=== PATIENT | female | born 1940 | race Caucasian/White ===

== ENCOUNTER 2016-09-29 13:52 | Outpatient (CLI) | payer MEDICARE, OTHER ==
[2016-09-29 14:31] LABS: BASOPHILS # (AUTO) 0.1 10^3/uL (0.0-0.1); BASOPHILS % (AUTO) 0.9 %; EOSINOPHILS # (AUTO) 0.1 10^3/uL (0.0-0.7); EOSINOPHILS % (AUTO) 1.7 %; HCT - HEMATOCRIT 39.8 % (37.0-47.0); HGB - HEMOGLOBIN 13.1 g/dL (12.0-16.0); LYMPHOCYTES # (AUTO) 1.2 10^3/uL (1.5-3.5); LYMPHOCYTES % (AUTO) 18.4 %; MEAN CORPUSCULAR HEMOGLOBIN 30.5 pg (27.0-31.0); MEAN CORPUSCULAR HGB CONC 32.8 g/dL (32.0-36.0); MEAN CORPUSCULAR VOLUME 92.8 fL (81.0-99.0); MEAN PLATELET VOLUME 6.4 fL (7.9-10.8); MONOCYTES # (AUTO) 0.5 10^3/uL (0.0-1.0); MONOCYTES % (AUTO) 6.9 %; NEUTROPHILS # (AUTO) 4.8 10^3/uL (1.5-6.6); NEUTROPHILS % (AUTO) 72.1 %; RED BLOOD COUNT 4.29 10^6/uL (4.20-5.40); RED CELL DISTRIBUTION WIDTH 16.1 % (12.0-15.0); UNCORRECTED WHITE BLOOD COUNT 6.7 x10^3/uL; WHITE BLOOD COUNT 6.7 x10^3/uL (4.8-10.8)
== END 2016-09-29 13:53 | disposition home or self-care (01) ==
LOC: LAB 13:52
PROVIDERS: ATTEND Internal Medicine Rheumatology
DX: M35.3 Polymyalgia rheumatica (principal); Z79.899 Other long term (current) drug therapy
CPT/HCPCS: 36415; 85025

== ENCOUNTER 2016-10-06 12:08 | Outpatient (CLI) | payer MEDICARE, OTHER ==
[2016-10-06 12:45] LABS: ALBUMIN/GLOBULIN RATIO 1.6 (1.0-2.2); BILIRUBIN,TOTAL 0.5 mg/dL (0.2-1.0); BUN - BLOOD UREA NITROGEN 23 mg/dL (6-20); CALCIUM 8.9 mg/dL (8.5-10.3); CARBON DIOXIDE - CO2 27 mmol/L (21-32); CHLORIDE 104 mmol/L (101-111); GFR - MDRD 54 (>89); GLUCOSE 88 mg/dL (70-100); POTASSIUM 3.7 mmol/L (3.5-5.0); SODIUM 138 mmol/L (135-145); TOTAL PROTEIN 6.4 g/dL (6.7-8.2)
== END 2016-10-06 12:09 | disposition home or self-care (01) ==
LOC: LAB 12:08
PROVIDERS: ATTEND Internal Medicine Rheumatology
DX: M35.3 Polymyalgia rheumatica (principal); Z79.899 Other long term (current) drug therapy
CPT/HCPCS: 36415; 80053; 86140

== ENCOUNTER 2016-11-28 14:19 | Outpatient (CLI) | payer MEDICARE, OTHER ==
[2016-11-28 14:46] LABS: BASOPHILS # (AUTO) 0.1 10^3/uL (0.0-0.1); BASOPHILS % (AUTO) 1.3 %; EOSINOPHILS # (AUTO) 0.1 10^3/uL (0.0-0.7); EOSINOPHILS % (AUTO) 1.9 %; HCT - HEMATOCRIT 40.3 % (37.0-47.0); HGB - HEMOGLOBIN 13.2 g/dL (12.0-16.0); LYMPHOCYTES # (AUTO) 1.5 10^3/uL (1.5-3.5); LYMPHOCYTES % (AUTO) 19.9 %; MEAN CORPUSCULAR HEMOGLOBIN 30.7 pg (27.0-31.0); MEAN CORPUSCULAR HGB CONC 32.8 g/dL (32.0-36.0); MEAN CORPUSCULAR VOLUME 93.5 fL (81.0-99.0); MEAN PLATELET VOLUME 6.6 fL (7.9-10.8); MONOCYTES # (AUTO) 0.7 10^3/uL (0.0-1.0); MONOCYTES % (AUTO) 9.1 %; NEUTROPHILS % (AUTO) 67.8 %; NUCLEATED RED BLOOD CELLS AUTO 0.1 /100WBC; RED BLOOD COUNT 4.31 10^6/uL (4.20-5.40); RED CELL DISTRIBUTION WIDTH 17.5 % (12.0-15.0); UNCORRECTED WHITE BLOOD COUNT 7.4 x10^3/uL; WHITE BLOOD COUNT 7.4 x10^3/uL (4.8-10.8)
[2016-11-28 15:02] LABS: ALBUMIN/GLOBULIN RATIO 1.5 (1.0-2.2); BILIRUBIN,TOTAL 0.6 mg/dL (0.2-1.0); BUN - BLOOD UREA NITROGEN 22 mg/dL (6-20); CALCIUM 9.2 mg/dL (8.5-10.3); CARBON DIOXIDE - CO2 26 mmol/L (21-32); CHLORIDE 102 mmol/L (101-111); CREATININE 1.1 mg/dL (0.4-1.0); GFR - MDRD 48 (>89); GLUCOSE 85 mg/dL (70-100); SODIUM 137 mmol/L (135-145); TOTAL PROTEIN 6.6 g/dL (6.7-8.2)
== END 2016-11-28 14:20 | disposition home or self-care (01) ==
LOC: LAB 14:19
PROVIDERS: ATTEND Internal Medicine Rheumatology
DX: M35.3 Polymyalgia rheumatica (principal); M81.0 Age-related osteoporosis without current pathological fracture
CPT/HCPCS: 36415; 80053; 82306; 85025; 86140

== ENCOUNTER 2017-08-23 15:32 | Outpatient (CLI) | payer MEDICARE, OTHER ==
--- NOTE | 2017-08-24 08:35 | XRAY Report ---
Procedure Date: 08/23/2017 Accession Number: [id number] / [id number] Procedure: XR - Hip w/Pelvis 2-3V LT CPT Code: FULL RESULT: EXAM: Hip w/Pelvis 2-3V LT DATE: 08/23/2017 4:13 PM CLINICAL HISTORY: PMR, OSTEOARTHRITIS, LEFT HIP PAIN COMPARISON: None. TECHNIQUE: 1 view of the pelvis and 1 view of the hip. FINDINGS: Bones: Right hip replacement. No evidence of fracture. Joints: Mild left hip osteoarthritis. Soft Tissues: Normal. No soft tissue swelling. IMPRESSION: Mild left hip osteoarthritis. Previous right hip replacement. RADIA
== END 2017-08-23 15:33 | disposition home or self-care (01) ==
LOC: DI 15:32
PROVIDERS: ATTEND Internal Medicine Rheumatology
DX: M16.12 Unilateral primary osteoarthritis, left hip (principal); Z96.641 Presence of right artificial hip joint

== ENCOUNTER 2017-10-15 17:00 | Emergency (ER) | payer MEDICARE, OTHER ==
[2017-10-15 17:16] VITALS: BP 182/70
[2017-10-15] MEDS ORDERED: LIDOCAINE VISCOUS 2% 15 ML UDC MM STA (17:40)
--- NOTE | 2017-10-15 17:41 | ED Physician Documentation ---
PD HPI LOWER EXT INJURY - Stated complaint Stated Complaint: RT LEG WOUND/DOG - Chief complaint Chief Complaint: Ext Problem - History obtained from History obtained from: Patient - History of Present Illness PD HPI LOW EXT INJURY LOCATION: Right, Lower leg Type of injury: Blunt / blow Where injury occurred: Home Timing - onset: Today Timing - duration: Minutes Timing - details: Abrupt onset, Still present Improved by: Rest, Immobilization Worsened by: Moving, Palpating Associated symptoms: No: Weakness, Numbness, Tingling Similar symptoms before: Diagnosis (thin skin tears) Recently seen: Not recently seen - Additional information Additional information: 77 y/o female with thin skin from prednisone wears skin protectors on her calves and arms as she has had numerous thin skin tears. She was with her daughter when a dog bit her daughter and banged into the patients anterior right calf. Despite the skin protectors the patient sustained an 8cm thin skin tear on the anterior calf. She presents now for wound repair. She knows sutures will not work on her skin. 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 Derm: Skin cancer surgery - Present Medications Home Medications: Ambulatory Orders Medication Instructions Recorded Confirmed RX: predniSONE [Prednisone] 1 - 2 mg PO BID 08/01/16 08/02/16 Calcium Carbonate/Vitamin D3 1 tab PO DAILY 08/02/16 08/02/16 [Calcium 600-Vit D3 400 Tablet] Denosumab [Prolia] 60 mg SUBQ ONCE 08/02/16 08/02/16 [place]-3/Dha/Epa/Fish Oil [Fish Oil 1,000 mg PO DAILY 08/02/16 08/02/16 1,000 mg Softgel] RX: Folic Acid 1 mg PO DAILY 08/02/16 08/02/16 RX: Methotrexate 8 tab PO Q7D 08/02/16 08/02/16 RX: Multivitamin [Multivitamins] 1 cap PO DAILY 08/02/16 08/02/16 - Allergies Allergies/Adverse Reactions: Allergies Allergy/AdvReac Type Severity Reaction Status Date / Time No Known Drug Allergies Allergy Verified 10/15/17 17:15 - Social History Smoking Status: Never smoker PD ED PE NORMAL - Vitals Vital signs reviewed: Yes (hypertension ) - General General: Alert and oriented X 3, No acute distress, Well developed/nourished - HEENT HEENT: Atraumatic, PERRL - Respiratory Respiratory: No respiratory distress - Derm Derm: Normal color, Warm and dry, Other (The skin is thin and there are a lot of post inflammitory hyperpigmentation areas of prior injuries to both forearms and both calves.) - Extremities Extremities: No deformity, No edema, Other (There is an 8cm thin flap of skin over the anterior calf on the right side superior. distal n/v is intact. ) - Neuro Neuro: Alert and oriented X 3, ticket worker 2-12 intact, No motor deficit, No sensory deficit, Normal speech Eye Opening: Spontaneous Motor: Obeys Commands Verbal: Oriented GCS Score: 15 - Psych Psych: Normal mood, Normal affect Results - Vitals Vitals: Vital Signs - 24 hr 10/15/17 17:13 Temperature 36.0 C L Heart Rate 68 Respiratory 16 Rate Blood Pressure 182/70 H O2 Saturation 98 Oxygen O2 Source Room air Procedures - Laceration (location) right calf Length in cm: 8 Wound type: Flap, Superficial, Clean Neurovascular status: Sensory intact, Motor intact Anesthesia: OTH (viscous lido is placed to the skin) Wound Preparation: Irrigated copiously NS, Wound explored, To the base Skin layer closure: Dermabond, Steri strips Other: Patient tolerated well, No complications, Neurovascular intact, Dressing applied, Tetanus UTD Complexity: Simple PD MEDICAL DECISION MAKING - ED course Complexity details: reviewed old records, considered differential, d/w patient, d/w family ED course: 77-year-old female with a thin flap of skin on the right calf that is repaired with the assistance of viscous lidocaine as an anesthetic and the skin is teased back up into position after irrigation and cleaning and with use of tincture of benzoin and Steri-Strips the wound is repositioned and approximated and over the top of the central portion of this Dermabond is applied. - Sepsis Event Vital Signs: Vital Signs - 24 hr 10/15/17 17:13 Temperature 36.0 C L Heart Rate 68 Respiratory 16 Rate Blood Pressure 182/70 H O2 Saturation 98 Oxygen O2 Source Room air Departure - Departure Disposition: 01 Home, Self Care Clinical Impression: Laceration of left calf without complication Qualifiers: Encounter type: initial encounter Qualified Code(s): S81.812A - Laceration without foreign body, left lower leg, initial encounter Condition: Stable Instructions: ED Laceration Ext Sutr Stap Tape Follow-Up: Juan Ramirez MD [Primary Care Provider] -
== END 2017-10-15 18:49 | disposition home or self-care (01) ==
LOC: ED 17:00
DX: S81.812A Laceration without foreign body, left lower leg, initial encounter (principal); Z79.52 Long term (current) use of systemic steroids; W22.8XXA Striking against or struck by other objects, initial encounter; Y92.009 Unspecified place in unspecified non-institutional (private) residence as the place of occurrence of the external cause
CPT/HCPCS: 12004; 99282; 99283

== ENCOUNTER 2017-11-22 22:40 | Emergency (ER) | payer MEDICARE, OTHER ==
--- NOTE | 2017-11-22 23:16 | ED Physician Documentation ---
History of Present Illness - Stated complaint Stated Complaint: BILAT LEG PX - Chief complaint Chief Complaint: Ext Problem - History obtained from History obtained from: Patient, Family - History of Present Illness Timing: Today - Additonal information Additional information: 77-year-old female with a history of rheumatoid arthritis who is on methotrexate and prednisone and has a severe problem with thin skin has developed some severe muscle cramps in her lower extremities this evening x2. She reports that earlier in the day today she did go out to take the dogs for a walk and that she did walk on the beach as well and she did some work in the garden doing some weed whacking. She does state that she feels thirsty now and that after the first attack that she had of this severe cramping, she did drink some water and she drank some more water following the second attack. She describes these attacks as severe contraction of both legs to the point she was unable to move them or to move herself. She states the pain was intense and unrelenting. The pain was down the back of both legs and into the groin on the right side. She is asymptomatic now here in the emergency department with the exception of some dry mucous membranes. Review of Systems Constitutional: denies: Fever, Chills, Myalgias, Fatigue Eyes: denies: Decreased vision Ears: denies: Ear pain Nose: denies: Rhinorrhea / runny nose, Congestion Throat: denies: Sore throat Cardiac: denies: Chest pain / pressure, Palpitations Respiratory: denies: Dyspnea, Cough GI: denies: Abdominal Pain, Nausea, Vomiting : reports: Frequency. denies: Dysuria Skin: denies: Rash Musculoskeletal: reports: Extremity pain. 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 Derm: Skin cancer surgery - Present Medications Home Medications: Ambulatory Orders Medication Instructions Recorded Confirmed predniSONE [Prednisone] 1 - 2 mg PO BID 08/01/16 11/22/17 Calcium Carbonate/Vitamin D3 1 tab PO DAILY 08/02/16 11/22/17 [Calcium 600-Vit D3 400 Tablet] Denosumab [Prolia] 60 mg SUBQ ONCE 08/02/16 11/22/17 Folic Acid 1 mg PO DAILY 08/02/16 11/22/17 Methotrexate 8 tab PO Q7D 08/02/16 11/22/17 Multivitamin [Multivitamins] 1 cap PO DAILY 08/02/16 11/22/17 [place]-3/Dha/Epa/Fish Oil [Fish Oil 1,000 mg PO DAILY 08/02/16 11/22/17 1,000 mg Softgel] Magnesium 250 mg PO DAILY 11/22/17 11/22/17 Melatonin/Pyridoxine [Melatonin 5 1 tab PO QPM 11/22/17 11/22/17 mg Tablet] Meloxicam 15 mg PO DAILY 11/22/17 11/22/17 - Allergies Allergies/Adverse Reactions: Allergies Allergy/AdvReac Type Severity Reaction Status Date / Time No Known Drug Allergies Allergy Verified 11/22/17 22:49 - Social History Does the pt smoke?: No Smoking Status: Never smoker Does the pt drink ETOH?: Yes ETOH Use: Wine, Beer Does the pt have substance abuse?: No - Immunizations Immunizations are current?: No Immunizations: TDAP >10years/unknown - POLST Patient has POLST: No PD ED PE NORMAL - Vitals Vital signs reviewed: Yes (hypertensive) - General General: Alert and oriented X 3, No acute distress, Well developed/nourished - HEENT HEENT: Atraumatic, PERRL - Respiratory Respiratory: No respiratory distress - Derm Derm: Normal color, Warm and dry, No rash - Extremities Extremities: No deformity, No edema, Other (There is post inflamatory hy perpigmentation of both lower calves. There is no specific tenderness and the wound to the right lateral calf is no examined. ) - Neuro Neuro: Alert and oriented X 3, optical instrument assembler 2-12 intact, No motor deficit, No sensory deficit, Normal speech Eye Opening: Spontaneous Motor: Obeys Commands Verbal: Oriented GCS Score: 15 - Psych Psych: Normal mood, Normal affect Results - Vitals Vitals: Vital Signs - 24 hr 11/22/17 22:45 Temperature 36.5 C Heart Rate 77 Respiratory 16 Rate Blood Pressure 157/90 H O2 Saturation 95 Oxygen O2 Source Room air - Labs Labs: Laboratory Tests 11/22/17 11/22/1718 23:30 23:30 23:30 WBC 7.2 RBC 4.28 Hgb 13.3 Hct 40.0 MCV 93.5 MCH 31.1 H MCHC 33.3 RDW 15.9 H Plt Count 237 MPV 6.2 L Neut # (Auto) 5.4 Lymph # (Auto) 1.2 L [place] # (Auto) 0.5 Eos # (Auto) 0.1 Baso # (Auto) 0.1 Absolute Nucleated RBC 0.00 Nucleated RBC % 0.0 Sodium 137 Potassium 4.0 Chloride 103 Carbon Dioxide 27 Anion Gap 7.0 BUN 35 H Creatinine 1.1 H Estimated GFR (MDRD) 48 L Glucose 79 Calcium 8.8 Total Bilirubin 0.5 AST 24 ALT 20 Alkaline Phosphatase 67 Total Creatine Kinase 97 CK-MB (CK-2) 3.0 Troponin I < 0.04 Total Protein 6.8 Albumin 3.9 Globulin 2.9 Albumin/Globulin Ratio 1.3 Lipase 66 H Urine Color Urine Clarity Urine pH Ur Specific Mcloud Urine Protein Urine Glucose (UA) Urine Ketones Urine Occult Blood Urine Nitrite Urine Bilirubin Urine Urobilinogen Ur Leukocyte Esterase Ur Microscopic Review Urine Culture Comments 11/22/17 23:30 WBC RBC Hgb Hct MCV MCH MCHC RDW Plt Count MPV Neut # (Auto) Lymph # (Auto) [place] # (Auto) Eos # (Auto) Baso # (Auto) Absolute Nucleated RBC Nucleated RBC % Sodium Potassium Chloride Carbon Dioxide Anion Gap BUN Creatinine Estimated GFR (MDRD) Glucose Calcium Total Bilirubin AST ALT Alkaline Phosphatase Total Creatine Kinase CK-MB (CK-2) Troponin I Total Protein Albumin Globulin Albumin/Globulin Ratio Lipase Urine Color YELLOW Urine Clarity CLEAR Urine pH 6.0 Ur Specific Mcloud 1.025 Urine Protein NEGATIVE Urine Glucose (UA) NEGATIVE Urine Ketones NEGATIVE Urine Occult Blood NEGATIVE Urine Nitrite NEGATIVE Urine Bilirubin NEGATIVE Urine Urobilinogen 0.2 (NORMAL) Ur Leukocyte Esterase NEGATIVE Ur Microscopic Review NOT INDICATED Urine Culture Comments NOT INDICATED Procedures - Bedside sono Bedside sono by EMP: With use of bedside ultrasound the aorta is imaged and there is no obvious aneurysm. The mid diameter of the aorta is 1.8 cm. The vessel is tortuous. - IVC sono (time) 2310 Bedside IVC sono: IVC measures (cm) (1.86), IVC collapsed c insp (cm) (complete), Dehydration (mild est <1 liter) PD MEDICAL DECISION MAKING - ED course Complexity details: reviewed old records, reviewed results, re-evaluated patient, considered differential, d/w patient, d/w family ED course: 77 y/o female with a history of rheumatoid arthritis has developed acute muscle spasms of the lower ext tonight associated with extra use of the legs during the day and dehydration. Evidence for dehydration is by interrogation of the IVC which shows only mild dehydration and elevation in the BUN indicating more significant dehydration, thirst of the patient with elevated blood pressure in dicating a functioning fornical organ. She is not vomiting and is able to orally hydrate. She should not require pain medication or muscle relaxant -- just extra water. - Sepsis Event Vital Signs: Vital Signs - 24 hr 11/22/17 22:45 Temperature 36.5 C Heart Rate 77 Respiratory 16 Rate Blood Pressure 157/90 H O2 Saturation 95 Oxygen O2 Source Room air Departure - Departure Disposition: 01 Home, Self Care Clinical Impression: Dehydration, [place] Condition: Stable Instructions: ED Dehydration, ED Muscle Pain Leg Cramps Follow-Up: Juan Ramirez MD [Primary Care Provider] -
[2017-11-22 23:42] LABS: BASOPHILS # (AUTO) 0.1 10^3/uL (0.0-0.1); BASOPHILS % (AUTO) 1.4 %; EOSINOPHILS # (AUTO) 0.1 10^3/uL (0.0-0.7); EOSINOPHILS % (AUTO) 0.8 %; HGB - HEMOGLOBIN 13.3 g/dL (12.0-16.0); LYMPHOCYTES # (AUTO) 1.2 10^3/uL (1.5-3.5); LYMPHOCYTES % (AUTO) 16.2 %; MEAN CORPUSCULAR HEMOGLOBIN 31.1 pg (27.0-31.0); MEAN CORPUSCULAR HGB CONC 33.3 g/dL (32.0-36.0); MEAN CORPUSCULAR VOLUME 93.5 fL (81.0-99.0); MEAN PLATELET VOLUME 6.2 fL (7.9-10.8); MONOCYTES # (AUTO) 0.5 10^3/uL (0.0-1.0); MONOCYTES % (AUTO) 6.9 %; NEUTROPHILS # (AUTO) 5.4 10^3/uL (1.5-6.6); NEUTROPHILS % (AUTO) 74.7 %; PLT - PLATELET COUNT 237 10^3/uL (130-450); RED BLOOD COUNT 4.28 10^6/uL (4.20-5.40); RED CELL DISTRIBUTION WIDTH 15.9 % (12.0-15.0); WHITE BLOOD COUNT 7.2 x10^3/uL (4.8-10.8)
[2017-11-22 23:43] LABS: BILIRUBIN,URINE NEGATIVE (NEGATIVE); GLUCOSE, URINE (UA) NEGATIVE (NEGATIVE); KETONES,URINE (UA) NEGATIVE (NEGATIVE); LEUKOCYTE ESTERASE, URINE NEGATIVE (NEGATIVE); NITRITE,URINE NEGATIVE (NEGATIVE); OCCULT BLOOD,URINE NEGATIVE (NEGATIVE); PROTEIN,URINE NEGATIVE (NEGATIVE); UROBILINOGEN,URINE 0.2 (NORMAL) E.U./dL (NORMAL)
[2017-11-22 23:55] LABS: ALBUMIN 3.9 g/dL (3.2-5.5); ALBUMIN/GLOBULIN RATIO 1.3 (1.0-2.2); BILIRUBIN,TOTAL 0.5 mg/dL (0.2-1.0); CALCIUM 8.8 mg/dL (8.5-10.3); CREATININE 1.1 mg/dL (0.4-1.0); TOTAL PROTEIN 6.8 g/dL (6.7-8.2)
[2017-11-22 23:58] LABS: TROPONIN I < 0.04 ng/mL (<0.49)
[2017-11-23 00:21] LABS: CLARITY,URINE CLEAR (CLEAR)
[2017-11-23 00:34] VITALS: BP 130/80
== END 2017-11-23 00:35 | disposition home or self-care (01) ==
LOC: ED 22:40
DX: E86.0 Dehydration (principal); M62.831 Muscle spasm of calf; M06.9 Rheumatoid arthritis, unspecified; Z79.52 Long term (current) use of systemic steroids; Z79.899 Other long term (current) drug therapy
CPT/HCPCS: 36415; 80053; 81001; 81003; 82550; 82553; 83690; 84484; 85025; 87086; 99283; 99284

== ENCOUNTER 2017-12-18 15:42 | Outpatient (CLI) | payer MEDICARE, OTHER | END 2017-12-18 15:43 | disposition home or self-care (01) | LOC: LAB 15:42 | PROVIDERS: ATTEND Internal Medicine Rheumatology | DX: M81.0 Age-related osteoporosis without current pathological fracture (principal) | CPT/HCPCS: 36415; 82306 ==

== ENCOUNTER 2018-10-01 14:22 | Outpatient (CLI) | payer MEDICARE, OTHER ==
--- NOTE | 2018-10-02 08:43 | Mammography Report ---
Reason: SCREENING MAMMO Procedure Date: 10/01/2018 Accession Number: [id number] / [id number] Procedure: CORNELL - Screening Mammo w/Leodan CPT Code: FULL RESULT: EXAM: Screening Mammo w/Leodan DATE: 10/01/2018 3:37 PM CLINICAL HISTORY: Screening encounter. TECHNIQUE: (B) - Bilateral CC and MLO views were obtained. COMPARISON: 07/07/2015 through 03/13/2009. PARENCHYMAL PATTERN: (A) - The breast(s) demonstrate(s) scattered fibroglandular densities. FINDINGS: There are typically benign vascular calcifications. There are no suspicious masses, calcifications, or areas of distortion. IMPRESSION: Benign findings. BI-RADS category 2. RECOMMENDATION: (ANNUAL) - Recommend routine annual screening mammography. BI-RADS CATEGORY: (2) - Benign Findings. STANDARD QUALIFYING STATEMENTS: 1. This examination was not reviewed with the aid of Computer-Aided Detection (CAD). 2. A negative or benign imaging report should not preclude biopsy if clinically suspicious findings are present. 3. Dense breasts may obscure an underlying neoplasm. 4. This examination was reviewed with the aid of 3D breast imaging (tomosynthesis).
== END 2018-10-01 14:23 | disposition home or self-care (01) ==
LOC: DI 14:22
PROVIDERS: ATTEND Nurse Practitioner
DX: Z12.31 Encounter for screening mammogram for malignant neoplasm of breast (principal)
CPT/HCPCS: 77063; 77067

== ENCOUNTER 2018-11-19 10:14 | Outpatient (CLI) | payer MEDICARE, OTHER ==
--- NOTE | 2018-11-19 14:57 | Ultrasound Report ---
Reason: PALPITATIONS Procedure Date: 11/19/2018 Accession Number: [id number] / [id number] Procedure: US - Carotid Doppler Complete CPT Code: FULL RESULT: EXAM: BILATERAL CAROTID AND VERTEBRAL ARTERY DUPLEX DOPPLER ULTRASOUND: EXAM DATE: 11/19/2018 12:39 PM CLINICAL HISTORY: Palpitations. COMPARISON: None. TECHNIQUE: Grayscale imaging, color Doppler, and duplex spectral Doppler were used to evaluate the carotid and vertebral arteries bilaterally. Static images were obtained. FINDINGS: There is morphologically mild plaque at both carotid bifurcations and tortuosity to the distal left internal carotid artery. No significant plaque is identified in the right or left common carotid arteries. Normal antegrade flow is present in bilateral vertebral arteries. VELOCITIES (cm/sec): Right CCA mid: PSV 56 cm/sec CCA dist: PSV 58 cm/sec ICA prox: PSV 63 cm/sec, EDV 20 cm/sec ICA mid: PSV 55 cm/sec, EDV 17 cm/sec ICA dist: PSV 89 cm/sec, EDV 28 cm/sec ECA: PSV 60 cm/sec Vert: PSV 43 cm/sec ICA/CCA: 1.5 Left CCA mid: PSV 60 cm/sec CCA dist: PSV 61 cm/sec ICA prox: PSV 47 cm/sec, EDV 11 cm/sec ICA mid: PSV 112 cm/sec, EDV 29 cm/sec ICA dist: PSV 97 cm/sec, EDV 25 cm/sec ECA: PSV 69 cm/sec Vert: PSV 63 cm/sec ICA/CCA: 1.8 ICA diameter stenosis: Right: <50% by velocity and <70% by NASCET criteria. Left: <50% by velocity and <70% by NASCET criteria. IMPRESSION: 1. Mild bilateral carotid artery plaquing in the bulb regions. 2. In the right carotid artery there are no elevated carotid artery velocities to suggest hemodynamically significant stenosis. 3. In the left carotid artery there are no elevated carotid artery velocities to suggest hemodynamically significant stenosis. 4. Normal antegrade flow is present in bilateral vertebral arteries. General Recommendations: Stenosis =50% ICA - Follow-up ultrasound 6-12 months Stenosis <50% ICA - High Risk Patient with plaque - Follow-up ultrasound 1-2 years Normal Study but High Risk Patient - Follow-up ultrasound 3-5 years Management recommendations and diagnostic criteria are based on current IAC endorsed standards in Carotid Artery Stenosis: Grayscale and Doppler Ultrasound Diagnosis. Validated velocity measurements with angiographic measurements and velocity criteria are extrapolated from diameter data as defined by the Society of Radiologists in Ultrasound Consensus Conference Radiology 2003; 229;340-346. RADIA
== END 2018-11-19 10:15 | disposition home or self-care (01) ==
LOC: DI 10:14
PROVIDERS: ATTEND Nurse Practitioner
DX: R00.2 Palpitations (principal); M35.3 Polymyalgia rheumatica; E03.9 Hypothyroidism, unspecified; M41.9 Scoliosis, unspecified
CPT/HCPCS: 93306; 93880

== ENCOUNTER 2018-12-17 14:48 | Outpatient (CLI) | payer MEDICARE, OTHER | END 2018-12-17 14:49 | disposition home or self-care (01) | LOC: LAB 14:48 | PROVIDERS: ATTEND Internal Medicine Rheumatology | DX: M31.6 Other giant cell arteritis (principal) | CPT/HCPCS: 36415; 85651; 86140 ==

== ENCOUNTER 2019-01-04 10:18 | Outpatient (CLI) | payer MEDICARE, OTHER | END 2019-01-04 10:19 | disposition home or self-care (01) | LOC: LAB 10:18 | PROVIDERS: ATTEND Internal Medicine Rheumatology | DX: M31.6 Other giant cell arteritis (principal); Z79.52 Long term (current) use of systemic steroids | CPT/HCPCS: 36415; 85651; 86140 ==

== ENCOUNTER 2019-02-12 11:19 | Outpatient (CLI) | payer MEDICARE, OTHER ==
[2019-02-12 11:45] LABS: BASOPHILS % (AUTO) 0.2 %; EOSINOPHILS % (AUTO) 0.2 %; HGB - HEMOGLOBIN 13.5 g/dL (12.0-16.0); LYMPHOCYTES # (AUTO) 3.6 10^3/uL (1.5-3.5); LYMPHOCYTES % (AUTO) 31.9 %; MEAN CORPUSCULAR VOLUME 90.5 fL (81.0-99.0); MEAN PLATELET VOLUME 8.2 fL (7.9-10.8); MONOCYTES # (AUTO) 0.7 10^3/uL (0.0-1.0); MONOCYTES % (AUTO) 5.9 %; NEUTROPHILS # (AUTO) 6.8 10^3/uL (1.5-6.6); NEUTROPHILS % (AUTO) 60.4 %; PLT - PLATELET COUNT 208 10^3/uL (130-450); RED BLOOD COUNT 4.82 10^6/uL (4.20-5.40); RED CELL DISTRIBUTION WIDTH 16.3 % (12.0-15.0); WHITE BLOOD COUNT 11.2 x10^3/uL (4.8-10.8)
[2019-02-12 12:00] LABS: ALBUMIN 3.7 g/dL (3.2-5.5); ALBUMIN/GLOBULIN RATIO 1.6 (1.0-2.2); ALKALINE PHOSPHATASE 48 IU/L (42-121); ALT ALANINE AMINOTRANSFERASE 27 IU/L (10-60); AST ASPARTATE AMINOTRANSFERASE 21 IU/L (10-42); BILIRUBIN,TOTAL 0.8 mg/dL (0.2-1.0); BUN - BLOOD UREA NITROGEN 29 mg/dL (6-20); CARBON DIOXIDE - CO2 28 mmol/L (21-32); CHLORIDE 101 mmol/L (101-111); CHOL/HDL RATIO 2.6 (<4.4); CHOLESTEROL 336 mg/dL; CREATININE 1.3 mg/dL (0.4-1.0); GFR - MDRD 40 (>89); GLUCOSE 80 mg/dL (70-100); HDL CHOLESTEROL 127 mg/dL; LDL CHOLESTEROL,CALCULATED 171 mg/dL; LDL/HDL RATIO 1.3 (<4.4); SODIUM 138 mmol/L (135-145); VLDL CHOLESTEROL 38 mg/dL
== END 2019-02-12 11:20 | disposition home or self-care (01) ==
LOC: LAB 11:19
PROVIDERS: ATTEND Nurse Practitioner
DX: Z00.00 Encounter for general adult medical examination without abnormal findings (principal); E03.9 Hypothyroidism, unspecified; R53.83 Other fatigue; R00.2 Palpitations; Z78.0 Asymptomatic menopausal state; M35.3 Polymyalgia rheumatica
CPT/HCPCS: 36415; 80053; 80061; 82306; 82607; 83721; 84443; 85025

== ENCOUNTER 2019-02-18 23:58 | Emergency (ER) | payer MEDICARE, OTHER ==
--- NOTE | 2019-02-19 02:18 | ED Physician Documentation ---
PD HPI OPHTHO - Stated complaint Stated Complaint: RED EYE - Chief complaint Chief Complaint: Heent - History obtained from History obtained from: Patient, Family - History of Present Illness Timing - onset: Today Timing - duration: Hours Timing - details: Abrupt onset, Still present Location: Right Associated symptoms: Redness, Swelling. No: Discharge, Matting, FB sensation, Photophobia, Decreased vision, Loss of vision, Headache Contributing factors: Other (has temporal arteritis) Similar symptoms before: Has not had sx before Recently seen: Clinic - Additional information Additional information: 78-year-old female on prednisone with a history of polymyalgia rheumatica has developed Temporal arteritis. She has been on a higher dose of prednisone now and tonight she noticed in the mirror that she had some redness to her right eye. She did end up calling her assistant store director, who recommended she come to the emergency department for evaluation. She denies any specific change in her vision today but states that as of February 01 that she went in to see her eye doctor for change in her vision. She is not having loss of vision she has had a change in her refraction. The patient does not have any significant pain in her eye. She did think that she had some swelling to her upper lid associated with this earlier. Review of Systems Constitutional: denies: Fever Eyes: reports: Decreased vision, Irritation. 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 Derm: Skin cancer surgery - Present Medications Home Medications: Ambulatory Orders Medication Instructions Recorded Confirmed predniSONE [Prednisone] 1 - 2 mg PO BID 08/01/16 11/22/17 Calcium Carbonate/Vitamin D3 1 tab PO DAILY 08/02/16 11/22/17 [Calcium 600-Vit D3 400 Tablet] Denosumab [Prolia] 60 mg SUBQ ONCE 08/02/16 11/22/17 Folic Acid 1 mg PO DAILY 08/02/16 11/22/17 Methotrexate 8 tab PO Q7D 08/02/16 11/22/17 Multivitamin [Multivitamins] 1 cap PO DAILY 08/02/16 11/22/17 [place]-3/Dha/Epa/Fish Oil [Fish Oil 1,000 mg PO DAILY 08/02/16 11/22/17 1,000 mg Softgel] Magnesium 250 mg PO DAILY 11/22/17 11/22/17 Melatonin/Pyridoxine [Melatonin 5 1 tab PO QPM 11/22/17 11/22/17 mg Tablet] Meloxicam 15 mg PO DAILY 11/22/17 11/22/17 - Allergies Allergies/Adverse Reactions: Allergies Allergy/AdvReac Type Severity Reaction Status Date / Time No Known Drug Allergies Allergy Verified 11/22/17 22:49 - Social History Does the pt smoke?: No Smoking Status: Never smoker Does the pt drink ETOH?: Yes Does the pt have substance abuse?: No - Immunizations Immunizations are current?: No Immunizations: TDAP >10years/unknown - POLST Patient has POLST: No PD ED PE NORMAL - Vitals Vital signs reviewed: Yes (hypertensive ) - HEENT HEENT: Atraumatic, PERRL, EOMI, Other (There is a subconjunctival hemorrhage to the right sclera and there is no specific trauma evident to the eye otherwise. There is symetric iris and no hyphema and no distortion of the globe. There is minimal if any swelling to the adam-orbital tissues in comparision to the left. ) - Neck Neck: Supple, no meningeal sign, No bony TTP - Respiratory Respiratory: No respiratory distress - Extremities Extremities: No deformity, No edema - Neuro Neuro: Alert and oriented X 3, hybrid technologist 2-12 intact, No motor deficit, No sensory deficit, Normal speech Eye Opening: Spontaneous Motor: Obeys Commands Verbal: Oriented GCS Score: 15 - Psych Psych: Normal mood, Normal affect Results - Vitals Vitals: Vital Signs - 24 hr 02/19/19 02/19/19 00:12 02:33 Temperature 36.4 C L Heart Rate 79 Respiratory 18 Rate Blood Pressure 140/83 H 142/79 H O2 Saturation 98 Oxygen O2 Source Room air PD MEDICAL DECISION MAKING - ED course Complexity details: re-evaluated patient, considered differential, d/w patient, d/w family, d/w therapeutic consultant (Vania recomends she follow up as planned with reassurance of benign findings on exam. ) ED course: 78-year-old female with a history of temporal arteritis has developed a subconjunctival hemorrhage. This does not appear to be anything other than a subconjunctival hemorrhage and she is does not have vision loss consistent with ischemic optic neuritis. I have discussed my findings with the patient's assistant store director and she is reassured and asked the patient to follow-up as previously planned. The patient is to have evaluation by a neuro- music artist. Departure - Departure Disposition: 01 Home, Self Care Clinical Impression: Subconjunctival bleed Qualifiers: Laterality: right Qualified Code(s): H11.31 - Conjunctival hemorrhage, right eye Condition: Stable Instructions: ED Eye Injury Subconj Hemorrhage Follow-Up: Alice Krause ARNP, [facility] [Primary Care Provider] - Loida Caro MD [Physician No Access] - Discharge Date/Time: 02/19/19 02:33
[2019-02-19 02:34] VITALS: BP 142/79
== END 2019-02-19 02:33 | disposition home or self-care (01) ==
LOC: ED 23:58
DX: H11.31 Conjunctival hemorrhage, right eye (principal)
CPT/HCPCS: 99283; 99284

== ENCOUNTER 2019-07-29 13:31 | Outpatient (CLI) | payer MEDICARE, OTHER ==
[2019-07-29 13:50] LABS: BASOPHILS # (AUTO) 0.1 10^3/uL (0.0-0.1); BASOPHILS % (AUTO) 0.5 %; EOSINOPHILS % (AUTO) 0.2 %; HGB - HEMOGLOBIN 13.2 g/dL (12.0-16.0); LYMPHOCYTES # (AUTO) 1.1 10^3/uL (1.5-3.5); LYMPHOCYTES % (AUTO) 9.2 %; MEAN CORPUSCULAR HGB CONC 30.7 g/dL (32.0-36.0); MEAN CORPUSCULAR VOLUME 91.1 fL (81.0-99.0); MEAN PLATELET VOLUME 8.5 fL (7.9-10.8); MONOCYTES # (AUTO) 0.5 10^3/uL (0.0-1.0); MONOCYTES % (AUTO) 3.9 %; NEUTROPHILS # (AUTO) 10.3 10^3/uL (1.5-6.6); NEUTROPHILS % (AUTO) 85.5 %; PLT - PLATELET COUNT 241 10^3/uL (130-450); RED BLOOD COUNT 4.72 10^6/uL (4.20-5.40); RED CELL DISTRIBUTION WIDTH 13.4 % (12.0-15.0); WHITE BLOOD COUNT 12.1 x10^3/uL (4.8-10.8)
[2019-07-29 14:09] LABS: ALBUMIN 3.6 g/dL (3.2-5.5); ALBUMIN/GLOBULIN RATIO 1.4 (1.0-2.2); BILIRUBIN,TOTAL 0.6 mg/dL (0.2-1.0); CALCIUM 8.6 mg/dL (8.5-10.3); CRP - C-REACTIVE PROTEIN 1.3 mg/dL (0-1.0); TOTAL PROTEIN 6.1 g/dL (6.7-8.2)
== END 2019-07-29 13:32 | disposition home or self-care (01) ==
LOC: LAB 13:31
PROVIDERS: ATTEND Internal Medicine Rheumatology
DX: M31.6 Other giant cell arteritis (principal); Z79.52 Long term (current) use of systemic steroids
CPT/HCPCS: 36415; 80053; 85025; 85651; 86140

== ENCOUNTER 2019-10-16 12:04 | Outpatient (CLI) | payer MEDICARE, OTHER ==
[2019-10-16 12:33] LABS: BASOPHILS # (AUTO) 0.1 10^3/uL (0.0-0.1); BASOPHILS % (AUTO) 0.5 %; EOSINOPHILS % (AUTO) 0.3 %; HGB - HEMOGLOBIN 13.2 g/dL (12.0-16.0); LYMPHOCYTES # (AUTO) 0.8 10^3/uL (1.5-3.5); LYMPHOCYTES % (AUTO) 7.8 %; MEAN CORPUSCULAR HEMOGLOBIN 28.3 pg (27.0-31.0); MEAN CORPUSCULAR HGB CONC 31.7 g/dL (32.0-36.0); MEAN CORPUSCULAR VOLUME 89.5 fL (81.0-99.0); MEAN PLATELET VOLUME 8.4 fL (7.9-10.8); MONOCYTES # (AUTO) 0.5 10^3/uL (0.0-1.0); MONOCYTES % (AUTO) 4.6 %; NEUTROPHILS % (AUTO) 86.4 %; PLT - PLATELET COUNT 253 10^3/uL (130-450); RED BLOOD COUNT 4.66 10^6/uL (4.20-5.40); RED CELL DISTRIBUTION WIDTH 15.2 % (12.0-15.0); WHITE BLOOD COUNT 10.5 x10^3/uL (4.8-10.8)
[2019-10-16 12:58] LABS: ALBUMIN 3.8 g/dL (3.2-5.5); ALBUMIN/GLOBULIN RATIO 1.7 (1.0-2.2); BILIRUBIN,TOTAL 0.6 mg/dL (0.2-1.0); CALCIUM 9.2 mg/dL (8.5-10.3); CREATININE 1.2 mg/dL (0.4-1.0); CRP - C-REACTIVE PROTEIN 1.9 mg/dL (0-1.0); TOTAL PROTEIN 6.1 g/dL (6.7-8.2)
== END 2019-10-16 12:05 | disposition home or self-care (01) ==
LOC: LAB 12:04
PROVIDERS: ATTEND Internal Medicine Rheumatology
DX: M31.6 Other giant cell arteritis (principal); Z79.52 Long term (current) use of systemic steroids
CPT/HCPCS: 36415; 80053; 85025; 85651; 86140

== ENCOUNTER 2019-12-08 06:06 | Outpatient (CLI) | payer MEDICARE, OTHER | END 2019-12-08 06:07 | disposition EMS.NT | LOC: EMS 06:06 | PROVIDERS: ATTEND Surgery | DX: S81.811A Laceration without foreign body, right lower leg, initial encounter (principal); W22.8XXA Striking against or struck by other objects, initial encounter; Y92.512 Supermarket, store or market as the place of occurrence of the external cause ==

== ENCOUNTER 2019-12-09 16:16 | Outpatient (CLI) | payer MEDICARE, OTHER ==
--- NOTE | 2019-12-09 19:11 | Ultrasound Report ---
PROCEDURE: Duplex Lwr Ext Arterial Bilat INDICATIONS: PERIPHERAL VASCULAR DISEASE TECHNIQUE: Color and pulse Doppler interrogation was performed of both lower extremity arterial systems, with im age documentation. COMPARISON: FINDINGS: Right lower extremity: Common femoral artery: 93 cm/sec, with triphasic flow. Deep femoral artery: 50 cm/sec, with triphasic flow. Proximal superficial femoral artery: 93 cm/sec, with triphasic flow. Mid superficial femoral artery: 80 cm/sec, with triphasic flow. Distal superficial femoral artery: 74 cm/sec, with biphasic flow. Popliteal artery: 65 cm/sec, with biphasic flow. Posterior tibial artery: 73 cm/sec, with biphasic flow. Anterior tibial artery/dorsalis pedis: 63/20 cm/sec, with biphasic flow. Brown-scale imaging description: Mild scattered atherosclerotic plaque without focal hemodynamically significant stenosis. Left lower extremity: Common femoral artery: 81 cm/sec, with triphasic flow. Deep femoral artery: 68 cm/sec, with triphasic flow. Proximal superficial femoral artery: 82 cm/sec, with triphasic flow. Mid superficial femoral artery: 68 cm/sec, with biphasic flow. Distal superficial femoral artery: 60 cm/sec, with biphasic flow. Popliteal artery: 51 cm/sec, with triphasic flow. Posterior tibial artery: 54 cm/sec, with biphasic flow. Anterior tibial artery/dorsalis pedis: 62/64 cm/sec, with biphasic flow. Brown-scale imaging description: Mild scattered atherosclerotic plaque without focal hematoma name of significant stenosis. IMPRESSION: Mild scattered atherosclerotic plaque in the lower extremity arteries with no focal hematoma likely s ignificant stenosis. Biphasic flow in the infrapopliteal vessels bilaterally with particularly low flow velocities in the right dorsalis pedis. Findings could explain a nonhealing wound in this vascular territory. Flow common femoral and superficial femoral flow velocities are suggestive of inflow disease. Conside r CT angiogram of the abdomen and pelvis to evaluate for aortic or iliac atherosclerosis. Reviewed by: Tristan Browning MD on 12/09/2019 7:10 PM PDT Approved by: Tristan Browning MD on 12/09/2019 7:10 PM PDT Station ID: [id number]
--- NOTE | 2019-12-09 19:12 | Ultrasound Report ---
PROCEDURE: Duplex Ext Veins Bilateral INDICATIONS: Nonhealing wound TECHNIQUE: Real-time imaging, as well as color and pulse Doppler interrogation, were performed of the deep veins of both legs from the inguinal ligament to the popliteal fossa. COMPARISON: None FINDINGS: The deep veins are normally compressible, and free of intraluminal thrombus. Color and pu lse Doppler demonstrate normal phasic intravascular flow. There is normal augmentation response to d istal compression maneuver. No sonographic evidence of venous reflux or stasis. IMPRESSION: No sonographic evidence of deep venous thrombus, venous stasis disease, or significant reflux. Reviewed by: Tristan Browning MD on 12/09/2019 7:11 PM PDT Approved by: Tristan Browning MD on 12/09/2019 7:11 PM PDT Station ID: [id number]
== END 2019-12-09 16:17 | disposition home or self-care (01) ==
LOC: DI 16:16
PROVIDERS: ATTEND Nurse Practitioner
DX: I73.9 Peripheral vascular disease, unspecified (principal)
CPT/HCPCS: 93925; 93970

== ENCOUNTER 2020-02-03 11:43 | Outpatient (CLI) | payer MEDICARE, OTHER ==
[2020-02-03 12:33] LABS: ALBUMIN 3.7 g/dL (3.2-5.5); ALBUMIN/GLOBULIN RATIO 1.5 (1.0-2.2); ALKALINE PHOSPHATASE 48 IU/L (42-121); ALT ALANINE AMINOTRANSFERASE 17 IU/L (10-60); AST ASPARTATE AMINOTRANSFERASE 21 IU/L (10-42); BILIRUBIN,TOTAL 0.8 mg/dL (0.2-1.0); BUN - BLOOD UREA NITROGEN 22 mg/dL (6-20); CARBON DIOXIDE - CO2 26 mmol/L (21-32); CHLORIDE 99 mmol/L (101-111); CHOLESTEROL 298 mg/dL; CREATININE 1.1 mg/dL (0.4-1.0); GLUCOSE 81 mg/dL (70-100); HDL CHOLESTEROL 100 mg/dL; LDL CHOLESTEROL,CALCULATED 167 mg/dL; LDL/HDL RATIO 1.7 (<4.4); SODIUM 136 mmol/L (135-145); TOTAL PROTEIN 6.1 g/dL (6.7-8.2); VLDL CHOLESTEROL 31 mg/dL
[2020-02-03 14:51] LABS: THYROID STIMULATING HORMONE 5.37 uIU/mL (0.34-5.60)
[2020-02-03 14:53] LABS: FREE T3 3.66 pg/mL (2.5-3.9); FREE T4 (FREE THYROXINE) 1.4 ng/dL (0.58-1.64)
[2020-02-03 16:07] LABS: BASOPHILS # (AUTO) 0.1 10^3/uL (0.0-0.1); BASOPHILS % (AUTO) 0.8 %; EOSINOPHILS # (AUTO) 0.1 10^3/uL (0.0-0.7); EOSINOPHILS % (AUTO) 0.9 %; HGB - HEMOGLOBIN 11.6 g/dL (12.0-16.0); LYMPHOCYTES # (AUTO) 1.2 10^3/uL (1.5-3.5); LYMPHOCYTES % (AUTO) 12.2 %; MEAN CORPUSCULAR HEMOGLOBIN 26.7 pg (27.0-31.0); MEAN CORPUSCULAR HGB CONC 31.2 g/dL (32.0-36.0); MEAN CORPUSCULAR VOLUME 85.7 fL (81.0-99.0); MEAN PLATELET VOLUME 8.2 fL (7.9-10.8); MONOCYTES # (AUTO) 0.7 10^3/uL (0.0-1.0); MONOCYTES % (AUTO) 7.1 %; NEUTROPHILS # (AUTO) 7.8 10^3/uL (1.5-6.6); NEUTROPHILS % (AUTO) 78.6 %; PLT - PLATELET COUNT 277 10^3/uL (130-450); RED BLOOD COUNT 4.34 10^6/uL (4.20-5.40); RED CELL DISTRIBUTION WIDTH 13.7 % (12.0-15.0)
== END 2020-02-03 11:44 | disposition home or self-care (01) ==
LOC: LAB 11:43
PROVIDERS: ATTEND Nurse Practitioner
DX: Z00.00 Encounter for general adult medical examination without abnormal findings (principal); I73.9 Peripheral vascular disease, unspecified; E78.5 Hyperlipidemia, unspecified; R53.83 Other fatigue; E03.9 Hypothyroidism, unspecified; M35.3 Polymyalgia rheumatica
CPT/HCPCS: 36415; 80053; 80061; 82306; 83721; 84439; 84443; 84481; 85025

== ENCOUNTER 2020-05-01 15:22 | Emergency (ER) | payer MEDICARE, OTHER ==
[2020-05-01] MEDS ORDERED: HYDROcod/ACETAM 5/325 MG TABLET PO STA (16:05)
--- NOTE | 2020-05-01 16:09 | ED Physician Documentation ---
PD HPI BACK PAIN - Stated complaint Stated Complaint: SWOLLEN LEFT HAND, MUSCLE SPASMS - Chief complaint Chief Complaint: Back Pain - History obtained from History obtained from: Patient, Family (daughter) - Additional information Additional information: 79-year-old woman with longstanding polymyalgia rheumatica and history of giant cell arteritis as well as scoliosis has 2 issues. She is noted that the dorsum of her left hand has been swollen for the last 3 weeks. Some discoloration. No recollected trauma. It was itchy., Her second issue is much more painful. She has left flank pain for the last week or so. At times she feels like it swollen or moving. She denies urinary complaints. It is worse with bending or twisting. No trauma there either. Review of Systems Ten Systems: 10 systems reviewed and negative Constitutional: denies: Fever, Chills Throat: reports: Reviewed and negative Cardiac: reports: Reviewed and negative Respiratory: reports: Reviewed and negative GI: reports: Reviewed and negative : reports: Reviewed and negative Skin: reports: Reviewed and negative Musculoskeletal: reports: Reviewed and negative PD PAST MEDICAL HISTORY - Past Medical History Cardiovascular: Other (PVD, Giant cell arteritis ) Respiratory: None Endocrine/Autoimmune: None GI: None : None HEENT: Glaucoma Psych: None Musculoskeletal: Osteoporosis, Other (PMR) Derm: None - Past Surgical History Ortho: 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: Hysterectomy Derm: Skin cancer surgery - Present Medications Home Medications: Ambulatory Orders Medication Instructions Recorded Confirmed predniSONE [Prednisone] 9 mg PO DAILY 08/01/16 01/02/20 Calcium Carbonate/Vitamin D3 1 tab PO DAILY 08/02/16 01/02/20 [Calcium 600-Vit D3 400 Tablet] Denosumab [Prolia] 60 mg SUBQ ONCE 08/02/16 01/02/20 Folic Acid 1 mg PO DAILY 08/02/16 01/02/20 Multivitamin [Multivitamins] 1 cap PO DAILY 08/02/16 01/02/20 [place]-3/Dha/Epa/Fish Oil [Fish Oil 1,000 mg PO DAILY 08/02/16 01/02/20 1,000 mg Softgel] Melatonin/Pyridoxine [Melatonin 5 1 tab PO QPM 11/22/17 01/02/20 mg Tablet] Turmeric/Turmeric Root Extract 1 cap PO DAILY 12/26/19 01/02/20 [Turmeric 500 mg Capsule] HYDROcod/ACETAM 5/325 [[place] 5/325] 1 - 2 tab PO Q6H PRN #20 tablet 05/01/20 - Allergies Allergies/Adverse Reactions: Allergies Allergy/AdvReac Type Severity Reaction Status Date / Time Penicillins Allergy Hives Verified 05/01/20 15:36 - Social History Does the pt smoke?: No Smoking Status: Never smoker Does the pt drink ETOH?: Yes Does the pt have substance abuse?: No - Immunizations Immunizations are current?: No Immunizations: TDAP >10years/unknown - POLST Patient has POLST: No PD ED PE NORMAL - Vitals Vital signs reviewed: Yes - General General: Alert and oriented X 3, No acute distress - HEENT HEENT: PERRL, EOMI - Neck Neck: Supple, no meningeal sign, No bony TTP - Cardiac Cardiac: RRR, No murmur - Respiratory Respiratory: No respiratory distress, Clear bilaterally - Abdomen Abdomen: Non tender - Back Back: Other (She is quite tender to the left flank and bottom of the left lower ribs. No midline tenderness. She has significant scoliosis.) - Derm Derm: Normal color, Warm and dry - Extremities Extremities: Other (There is some edema of the dorsum of the hand without warmth or discoloration. It looks more like an recollected trauma than it does cellulitis. There is no tenderness or limited range of motion.) - Neuro Neuro: Alert and oriented X 3, Normal speech, Other (The patient has equal and normal Achilles and patellar reflexes bilaterally. Normal sensation in all areas of the legs. Patient denies saddle anesthesia. Normal strength in flexion-extension at the ankles, knees, and flexion of the hips.) Results - Vitals Vitals: Vital Signs - 24 hr 05/01/20 15:32 Temperature 36.4 C L Heart Rate 111 H Respiratory 16 Rate Blood Pressure 146/94 H O2 Saturation 100 Oxygen O2 Source Room air - Labs Labs: Laboratory Tests 05/01/20 05/01/20 05/01/20 16:15 16:15 16:15 WBC 9.9 RBC 5.19 Hgb 13.4 Hct 43.5 MCV 83.8 MCH 25.8 L MCHC 30.8 L RDW 16.7 H Plt Count 276 MPV 8.6 Neut # (Auto) 6.4 Lymph # (Auto) 2.5 Maury # (Auto) 0.7 Eos # (Auto) 0.1 Baso # (Auto) 0.1 Absolute Nucleated RBC 0.00 Nucleated RBC % 0.0 ESR 9 Sodium 137 Potassium 3.9 Chloride 100 L Carbon Dioxide 25 Anion Gap 12.0 BUN 23 H Creatinine 1.2 H Estimated GFR (MDRD) 43 L Glucose 131 H Calcium 9.3 C-Reactive Protein Urine Color Urine Clarity Urine pH Ur Specific [place] Urine Protein Urine Glucose (UA) Urine Ketones Urine Occult Blood Urine Nitrite Urine Bilirubin Urine Urobilinogen Ur Leukocyte Esterase Ur Microscopic Review Urine Culture Comments 05/01/20 05/01/20 16:15 17:24 WBC RBC Hgb Hct MCV MCH MCHC RDW Plt Count MPV Neut # (Auto) Lymph # (Auto) Ma[place] # (Auto) Eos # (Auto) Baso # (Auto) Absolute Nucleated RBC Nucleated RBC % ESR Sodium Potassium Chloride Carbon Dioxide Anion Gap BUN Creatinine Estimated GFR (MDRD) Glucose Calcium C-Reactive Protein 1.3 H Urine Color YELLOW Urine Clarity CLEAR Urine pH 5.5 Ur Specific [place] 1.020 Urine Protein NEGATIVE Urine Glucose (UA) NEGATIVE Urine Ketones NEGATIVE Urine Occult Blood NEGATIVE Urine Nitrite NEGATIVE Urine Bilirubin NEGATIVE Urine Urobilinogen 0.2 (NORMAL) Ur Leukocyte Esterase NEGATIVE Ur Microscopic Review NOT INDICATED Urine Culture Comments NOT INDICATED PD MEDICAL DECISION MAKING - ED course ED course: 79-year-old woman with what looks like an recollected trauma to the dorsum of the left hand. Does not look cellulitic and not tender or with limited range of motion. Close watchful waiting was advised there. She also has back pain, in the left flank. Notes that she is on long-term steroids so occult fractures and atypical infections are certainly on the differential as well as pyelonephritis or kidney stone. We will try to get her prior ESR and CRP from her cardiovascular technician's office, she notes they are chronically elevated. In order to be able to evaluate what her ESR and CRP mean today, we are able to contact the [place] [facility] and obtain her last set of labs. She had labs drawn on April 14 of this year. Pertinent abnormalities include a BUN of 29 and a creatinine of 1.21 corresponding to a GFR of 43. Her ESR was 14 and her CRP was 1.25. Feeling better after hydrocodone. CT of the lumbar spine shows chronic degenerative and arthritic changes, no findings on belly CT. Departure - Departure Disposition: 01 Home, Self Care Clinical Impression: Back pain Qualifiers: Back pain location: low back pain Chronicity: acute Back pain laterality: left Sciatica presence: without sciatica Qualified Code(s): M54.5 - Low back pain Condition: Good Record reviewed to determine appropriate education?: Yes Instructions: ED Neck Back Pain General Prescriptions: HYDROcod/ACETAM 5/325 [[place] 5/325] 1 - 2 tab PO Q6H PRN #20 tablet PRN Reason: Pain Comments: Do not drink or drive while taking narcotic pain medication. Note that many narcotic pain relievers also contain Tylenol/acetaminophen. Please ensure that your total dose of acetaminophen from all sources does not exceed 3 g (3000 mg) per day. You may get constipated while on this medication. Take a stool softener such as Colace twice a day while you are on it. Also add an [id number] laxative such as senna or MiraLAX on any day that you do not have a bowel movement. If you received a narcotic pain medication or sedative while in the emergency department, do not drive for the next 24 hours. Call your doctor to arrange a follow-up appointment, make the next available appointment. In the interim, return anytime if worse or if new symptoms develop.
[2020-05-01] MEDS ORDERED: IOVERSOL 320 100 ML VIAL IVP ONE ×2 (16:23→17:10)
[2020-05-01 16:29] LABS: BASOPHILS # (AUTO) 0.1 10^3/uL (0.0-0.1); EOSINOPHILS # (AUTO) 0.1 10^3/uL (0.0-0.7); EOSINOPHILS % (AUTO) 1.2 %; HCT - HEMATOCRIT 43.5 % (37.0-47.0); HGB - HEMOGLOBIN 13.4 g/dL (12.0-16.0); LYMPHOCYTES # (AUTO) 2.5 10^3/uL (1.5-3.5); LYMPHOCYTES % (AUTO) 25.5 %; MEAN CORPUSCULAR HEMOGLOBIN 25.8 pg (27.0-31.0); MEAN CORPUSCULAR HGB CONC 30.8 g/dL (32.0-36.0); MEAN CORPUSCULAR VOLUME 83.8 fL (81.0-99.0); MEAN PLATELET VOLUME 8.6 fL (7.9-10.8); MONOCYTES # (AUTO) 0.7 10^3/uL (0.0-1.0); MONOCYTES % (AUTO) 6.9 %; NEUTROPHILS # (AUTO) 6.4 10^3/uL (1.5-6.6); NEUTROPHILS % (AUTO) 64.8 %; PLT - PLATELET COUNT 276 10^3/uL (130-450); RED BLOOD COUNT 5.19 10^6/uL (4.20-5.40); RED CELL DISTRIBUTION WIDTH 16.7 % (12.0-15.0); WHITE BLOOD COUNT 9.9 x10^3/uL (4.8-10.8)
[2020-05-01 16:32] LABS: CALCIUM 9.3 mg/dL (8.5-10.3); CREATININE 1.2 mg/dL (0.4-1.0); POTASSIUM 3.9 mmol/L (3.5-5.0)
[2020-05-01 17:33] LABS: BILIRUBIN,URINE NEGATIVE (NEGATIVE); CLARITY,URINE CLEAR (CLEAR); GLUCOSE, URINE (UA) NEGATIVE (NEGATIVE); KETONES,URINE (UA) NEGATIVE (NEGATIVE); LEUKOCYTE ESTERASE, URINE NEGATIVE (NEGATIVE); NITRITE,URINE NEGATIVE (NEGATIVE); OCCULT BLOOD,URINE NEGATIVE (NEGATIVE); PH,URINE 5.5 PH (5.0-7.5); PROTEIN,URINE NEGATIVE (NEGATIVE); UROBILINOGEN,URINE 0.2 (NORMAL) E.U./dL (NORMAL)
--- NOTE | 2020-05-01 17:53 | CT Report ---
PROCEDURE: LUMBAR SPINE W INDICATIONS: Back and left flank pain CONTRAST: IV CONTRAST: Optiray 320 ml: 100 PO CONTRAST: *NO PO CONTRAST TECHNIQUE: After the administration of intravenous Isovue contrast, 3 mm thick sections acquired from the T12 le zackary to the sacrum. Sagittal and coronal reformats were constructed. For radiation dose reduction, t he following was used: automated exposure control, adjustment of mA and/or kV according to patient s ize. COMPARISON: None. FINDINGS: No suspicious lytic or blastic osseous lesion. Severe lumbar levoscoliosis with left lateral listhesi s of L4 on L5 measuring 1.1 cm. There is left lateral listhesis of L3 with respect to L4 and L2, by 0 .4 cm and 1.1 cm, respectively. No anterolisthesis or retrolisthesis. Vertebral body heights maintain ed. No significant osseous spinal canal stenosis. There is moderate bilateral neural foraminal narrow ing at L4-L5 and at L3-L4. IMPRESSION: Acute finding. Overall moderate-severe degenerative changes in the lower lumbar spine driven primarily by severe lev oscoliosis and associated spondylitic changes. Reviewed by: Tristan Browning MD on 05/01/2020 5:52 PM PST Approved by: Tristan Browning MD on 05/01/2020 5:52 PM PST Station ID: [id number]
--- NOTE | 2020-05-01 18:48 | CT Report ---
PROCEDURE: Abdomen/Pelvis W INDICATIONS: back pain/L flank pain CONTRAST: IV CONTRAST: Optiray 320 ml: 100 PO CONTRAST: *NO PO CONTRAST TECHNIQUE: After the administration of intravenous contrast, 5 mm thick sections acquired from the diaphragms to the symphysis. 5 mm thick coronal and sagittal reformats were acquired. For radiation dose reducti on, the following was used: automated exposure control, adjustment of mA and/or kV according to aki ent size. COMPARISON: None. FINDINGS: Image quality: Excellent. ABDOMEN: Lung bases: Lung bases are clear. Heart size is normal. Solid organs: Liver and spleen are normal in size and enhancement. Gallbladder Biliary system is non dilated. Pancreas enhances normally. No adrenal nodules. Kidneys demonstrate normal size an d enhancement, without hydronephrosis. Peritoneum and bowel: Bowel loops demonstrate normal wall thickness and caliber. No free fluid or a ir. Nodes and vessels: No retroperitoneal or mesenteric adenopathy by size criteria. Aorta and inferior vena cava are normal in size. Miscellaneous: No ventral hernias. PELVIS: Genitourinary: Bladder wall thickness is normal. Miscellaneous: No inguinal hernias or adenopathy. Bones: No suspicious bony lesions. No vertebral body compression fractures. IMPRESSION: No acute finding to explain abdominal pain. Reviewed by: Tristan Browning MD on 05/01/2020 6:46 PM PST Approved by: Tristan Browning MD on 05/01/2020 6:46 PM PST Station ID: [id number]
[2020-05-01] MEDS ORDERED: HYDROcod/ACET 5/325 Prepack 4 PO STA (18:54)
[2020-05-01 19:23] VITALS: BP 142/88
== END 2020-05-01 19:25 | disposition home or self-care (01) ==
LOC: ED 15:22
DX: M54.5 Low back pain (principal); M41.9 Scoliosis, unspecified; M31.5 Giant cell arteritis with polymyalgia rheumatica
CPT/HCPCS: 36415; 72132; 74177; 80048; 81003; 85025; 85651; 86140; 99284; A9270; Q9967; 81001; 87086

== ENCOUNTER 2020-05-22 12:55 | Outpatient (CLI) | payer MEDICARE, OTHER ==
--- OUTSIDE RECORDS SUMMARY | 2020-06-02 19:56 | EXTERNAL MEDICAL SUMMARY RPT | Continuity of Care Document ---
:1940 Demographics Phone Unavailable Preferred Language Unknown Marital Status Unknown Yazidism Affiliation Unknown Race Unknown Ethnic Group Unknown Author Organization [facility] Address [address] [id number] Phone Social History date description facility [phone]
== END 2020-05-22 12:56 | disposition home or self-care (01) ==
LOC: LAB 12:55
PROVIDERS: ATTEND Internal Medicine Rheumatology
DX: M35.3 Polymyalgia rheumatica (principal); M25.449 Effusion, unspecified hand
CPT/HCPCS: 36415; 81599; 85651; 86140; 86200; 86431

== ENCOUNTER 2020-06-16 10:44 | Emergency (ER) | payer MEDICARE, OTHER ==
--- OUTSIDE RECORDS SUMMARY | 2020-06-16 10:47 | EXTERNAL MEDICAL SUMMARY RPT | Continuity of Care Document ---
:1940 Demographics Phone Unavailable Preferred Language Unknown Marital Status Unknown Presybeterian Affiliation Unknown Race Unknown Ethnic Group Unknown Author Organization [facility] Address [address] [id number] Phone Social History date description facility [phone]
--- OUTSIDE RECORDS SUMMARY | 2020-06-16 11:45 | EXTERNAL MEDICAL SUMMARY RPT | Continuity of Care Document ---
:1940 Demographics Phone Unavailable Preferred Language Unknown Marital Status Unknown Roman Catholic Affiliation Unknown Race Unknown Ethnic Group Unknown Author Organization [facility] Address [address] [id number] Phone Social History date description facility [phone]
--- NOTE | 2020-06-16 12:14 | ED Physician Documentation ---
History of Present Illness - Stated complaint Stated Complaint: BACK PX - Chief complaint Chief Complaint: Back Pain - History obtained from History obtained from: Patient - Additonal information Additional information: Pt is brought to the ED by her daughter for "stat MRI of the thoracic and lumbar spine and admission for pain control" after being told to come by her ornamenter hand, Dr. Chandler, for chronic back pain. PT has severe scoliosis and a long-standing history of low-back issues, but for the past 2-3 months, has had more debilitating pain in the same area. Pt states it feels like a burning, sharp pain, wrapping around her L flank. She was seen for the same here in the ED earlier in her course (about 1.5 months ago), and CT scans of both the L- spine and abd/pelvis. These showed severe scoliosis and degenerative changes, without underlying organ pathology. Pt is also followed by her PCP and public welfare worker. She has been prescribed Vicodin, gabapentin, and Flexeril for the pain, but states she does not take the gabapentin because she read the side effect profile and was worried about it. She takes Vicodin 1 tab twice daily because she is worried about its addictive properties, and uses the Flexeril sporadically. Pt states that Dr. Chandler had told her to take 3 x 650mg Tylenol at night before bed, but she thought that was too much, so she only takes 2 tabs. Pt states she usually doesn't get more than a few hours of sleep because of the pain. She has not seen a juvenile justice specialist, and has not been referred to pain management. Pt has been in PT at various times. She states that right now, she is not having much pain, which is usually the case during the mid-day. No fever or loss of bowel or bladder control. No new sx since last visit to our ED. Review of Systems Ten Systems: 10 systems reviewed and negative Constitutional: reports: Reviewed and negative Eyes: reports: Reviewed and negative Ears: reports: Reviewed and negative Nose: reports: Reviewed and negative Throat: reports: Reviewed and negative Cardiac: reports: Reviewed and negative Respiratory: reports: Reviewed and negative GI: reports: Reviewed and negative : reports: Reviewed and negative Skin: reports: Reviewed and negative Musculoskeletal: reports: Back pain Neurologic: reports: Reviewed and negative Psychiatric: reports: Reviewed and negative Endocrine: reports: Reviewed and negative Immunocompromised: reports: Reviewed and negative PD PAST MEDICAL HISTORY - Past Medical History Past Medical History: Yes Cardiovascular: Other Respiratory: None Neuro: TIA, Migraines Endocrine/Autoimmune: None GI: None JEWELRY SETTER: None : None HEENT: Glaucoma Psych: None Musculoskeletal: Rheumatoid arthritis, Osteoporosis, Chronic back pain, Other Derm: None Other Past Medical History: PMR Hx - Past Surgical History Past Surgical History: Yes Ortho: Hip replacement /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 Derm: Skin cancer surgery - Present Medications Home Medications: Ambulatory Orders Medication Instructions Recorded Confirmed predniSONE [Prednisone] 9 mg PO DAILY 08/01/16 06/16/20 Calcium Carbonate/Vitamin D3 1 tab PO DAILY 08/02/16 06/16/20 [Calcium 600-Vit D3 400 Tablet] Denosumab [Prolia] 60 mg SUBQ ONCE 08/02/16 06/16/20 Folic Acid 1 mg PO DAILY 08/02/16 06/16/20 Multivitamin [Multivitamins] 1 cap PO DAILY 08/02/16 06/16/20 [place]-3/Dha/Epa/Fish Oil [Fish Oil 1,000 mg PO DAILY 08/02/16 06/16/20 1,000 mg Softgel] Melatonin/Pyridoxine [Melatonin 5 1 tab PO QPM 11/22/17 06/16/20 mg Tablet] Turmeric/Turmeric Root Extract 1 cap PO DAILY 12/26/19 06/16/20 [Turmeric 500 mg Capsule] HYDROcod/ACETAM 5/325 [[place] 5/325] 1 - 2 tab PO Q6H PRN #20 tablet 05/01/20 06/16/20 - Allergies Allergies/Adverse Reactions: Allergies Allergy/AdvReac Type Severity Reaction Status Date / Time Penicillins Allergy Hives Verified 06/16/20 10:47 - Social History Does the pt smoke?: No Smoking Status: Never smoker Does the pt drink ETOH?: Yes ETOH Use: Wine Does the pt have substance abuse?: No - Immunizations Immunizations are current?: No Immunizations: TDAP >10years/unknown - POLST Patient has POLST: No PD ED PE NORMAL - Vitals Vital signs reviewed: Yes - General General: Alert and oriented X 3, No acute distress, Well developed/nourished - HEENT HEENT: Atraumatic, PERRL, EOMI, Moist mucous membranes - Neck Neck: Supple, no meningeal sign, No bony TTP - Cardiac Cardiac: RRR, No murmur - Respiratory Respiratory: No respiratory distress, Clear bilaterally - Abdomen Abdomen: Soft, Non tender, Non distended - Back Back: No CVA TTP, Other (Severe scoliosis. Limited ROM of back, secondary to stiffness/positioning and less so, pain. Tenderness over L lumbar musculature, mild) - Derm Derm: Warm and dry - Extremities Extremities: No deformity - Neuro Neuro: Alert and oriented X 3, loan review analyst 2-12 intact, No motor deficit, No sensory deficit, Normal speech - Psych Psych: Normal mood, Normal affect Results - Vitals Vitals: Oxygen O2 Source Room air PD MEDICAL DECISION MAKING - ED course Complexity details: reviewed old records, considered differential, d/w patient, d/w family ED course: I did speak at great length with pt and her daughter. This pleasant pt is in very unfortunate situation, but her sx are all chronic, and she is without indications of an emergent condition related to her back pain. Furthermore, she is not in much pain now, and is greatly underusing the medications she already has at home for symptom mitigation. I have discussed with the pt and family that unfortunately, the referral to the ED for emergent MRI is inappropriate, as is the notion of admission at this time. We have discussed increasing use of the pt's home medications in a stepwise fashion, and I have addressed the pt's concerns about both the gabapentin and the Vicodin. Pt would likely greatly benefit from being followed by a pain specialist, and while MRI may certainly be helpful, this should be ordered in an outpatient setting by her doctors. I have encouraged pt and her daughter to seek follow-up with pt's PCP for appropriate referrals for the above. We have discussed the usual indications for return. PT states she does not need any medication here, either as a dose or a prescription. Departure - Departure Disposition: Home, Self Care Clinical Impression: Acute exacerbation of chronic low back pain Condition: Stable Instructions: ED Spasm Back No Trauma Comments: As we have discussed, you did have extensive imaging done here in the emergency department on your last visit. Unfortunately, this did show, in addition to your severe scoliosis, that you have extensive degenerative changes throughout your lower spine. The combination of these 2 things is most likely the cause of your ongoing back pain. It does seem that you have appropriate medication at home, but it is important to actually take it. There is no benefit that can be added to keeping you in the hospital for pain unless you have already maximized your ability to control pain at home. You may take the gabapentin at night if you wish, and then take the hydrocodone every 6 hours throughout the day. If this does not seem to be adequately controlling your pain, then you may increase the frequency of hydrocodone to a tablet every 4 hours. If this is still not enough to control your pain, you may take as many as 2 tablets of hydrocodone every 4 hours, or you may take 1 tablet every 6 hours and add a dose of Flexeril twice a day during waking hours. However, these are all sedating medications and any increase in the amount you are taking should be carefully considered. Most ideally, your doctors should refer you to a chronic pain specialist to help come up with a good pain management plan for at home. Unfortunately, it is not appropriate to refer patients to the ED to get MRI for chronic pain/issues. Please speak with your doctor's office about getting scheduled for an outpatient MRI to further evaluate your spine, if desired. Discharge Date/Time: 06/16/20 12:33
[2020-06-16 12:35] VITALS: BP 150/90
== END 2020-06-16 12:33 | disposition home or self-care (01) ==
LOC: ED 10:44
DX: M54.5 Low back pain (principal); M06.9 Rheumatoid arthritis, unspecified; Z79.899 Other long term (current) drug therapy; T40.2X6A Underdosing of other opioids, initial encounter; T42.6X6A Underdosing of other antiepileptic and sedative-hypnotic drugs, initial encounter; T48.1X6A Underdosing of skeletal muscle relaxants [neuromuscular blocking agents], initial encounter; Z91.128 Patient's intentional underdosing of medication regimen for other reason
CPT/HCPCS: 99281; 99284

== ENCOUNTER 2020-06-19 10:55 | Outpatient (CLI) | payer MEDICARE, OTHER ==
--- NOTE | 2020-06-22 11:36 | Mammography Report ---
BILATERAL DIGITAL SCREENING MAMMOGRAM 3D/2D: 06/19/2020 CLINICAL: Routine screening. Comparison is made to exams dated: 10/01/2018 mammogram, 07/07/2015 mammogram, 12/18/2012 mammogram, an d 11/09/2010 mammogram - [facility]. There are scattered fibroglandular elements in both breasts. There are benign vascular calcifications in both breasts. No significant masses, calcifications, or other findings are seen in either breast. There has been no significant interval change. IMPRESSION: BENIGN There is no mammographic evidence of malignancy. A 1 year screening mammogram is recommended. This exam was interpreted at Station ID: [id number]. NOTE: For mammograms, a report in lay terms will be sent to the patient. Approximately 15% of breast malignancies will not be visualized mammographically. In the management of a palpable breast mass, a negative mammogram must not discourage biopsy of a clinically suspicious lesion. Electronically Signed By: Marita baer/santorad:06/19/2020 15:20:40 ACR BI-RADS Category 2: Benign Finding(s) 3342F PARENCHYMAL PATTERN: (A) - The breast(s) demonstrate(s) scattered fibroglandular densities. BI-RADS CATEGORY: (2) - 2 RECOMMENDATION: (ANNUAL) - Recommend routine annual screening mammography. [id number] 1 year screening LATERALITY: (B)
== END 2020-06-19 10:56 | disposition home or self-care (01) ==
LOC: DI 10:55
DX: Z12.31 Encounter for screening mammogram for malignant neoplasm of breast (principal)

== ENCOUNTER 2020-06-22 14:17 | Outpatient (CLI) | payer MEDICARE, OTHER ==
--- NOTE | 2020-06-22 19:24 | MRI Report ---
PROCEDURE: Thoracic Spine W/O INDICATIONS: LBP, SCOLIOSIS TECHNIQUE: Noncontrast sagittal T1 spine echo and T2 fast spin echo, sagittal STIR, axial T1 and T2 fast spin ec ho through the thoracic spine. COMPARISON: MRI lumbar spine 06/22/2020 FINDINGS: Image quality: Excellent. Alignment and Curvature: There is significant rightward curvature of the thoracic spine with apex at approximately T8. Bone Marrow: Marrow is of normal overall signal. No acute vertebral body compression fractures. Spinal Cord: Visualized spinal cord is normal in size and signal. Paraspinous Soft Tissues: No paravertebral masses. Miscellaneous: On axial images, central canal appear widely patent at all scanned levels. Minimal d isc bulge at T10-11, T9-10, T7-8. There is left foraminal narrowing at T10-11 secondary to ligamentum flavum and facet hypertrophy. IMPRESSION: 1. Significant rightward scoliotic curvature. 2. Scattered minimal disc bulges. 3. No spinal stenosis. 4. Left foraminal narrowing at T10-11. Reviewed by: Юлия De La Torre MD on 06/22/2020 6:22 PM CIPRIANO Approved by: Юлия De La Torre MD on 06/22/2020 6:22 PM AKMICHAEL Station ID: [id number]
--- NOTE | 2020-06-23 19:34 | MRI Report ---
PROCEDURE: Lumbar Spine W/O INDICATIONS: LBP, SCOLIOSIS TECHNIQUE: Noncontrast sagittal T1 spin echo and T2 fast echo, sagittal STIR, axial T1 and T2 fast spin echo thr ough the lumbar spine. In cases with scoliosis, additional coronal T2 fast spin echo may be performe d. COMPARISON: CT lumbar spine 05/01/2020, MRI thoracic spine 06/22/2020 FINDINGS: Image quality: Excellent. Alignment and Curvature: There is prominent leftward scoliotic curvature with apex at L3-4. Bone Marrow: Marrow is of normal overall signal. No acute vertebral body compression fractures. Spinal Cord: Conus medullaris terminates at the L1-L2 level. Visualized cord demonstrates normal si gnal and size. Paraspinous Soft Tissues: No paravertebral masses. Increased T2 signal is present within the left k idney most suggestive of cyst. Discs Moderate to severe disc desiccation is present throughout the lumbar spine. L1-L2: Minimal disc bulge without spinal stenosis. Minimal bilateral foraminal narrowing with face t and ligamentum flavum hypertrophy. L2-L3: Mild disc bulge with mild spinal stenosis. There is mild narrowing of the right lateral rec ess secondary to asymmetric facet hypertrophy. Moderate to severe right foraminal narrowing is presen t. L3-L4: Mild disc bulge with mild spinal stenosis. Moderate right foraminal narrowing with facet and ligamentum flavum hypertrophy. L4-L5: Mild disc bulge with moderate spinal stenosis and flattening of the canal. There is moderate to severe narrowing through the left subarticular recess as well as moderate right foraminal narrowi ng. L5-S1: No disc bulge or spinal stenosis. Moderate to severe left foraminal narrowing. IMPRESSION: 1. Significant scoliotic curvature. 2. Mild to moderate spinal stenosis from L2-3 through L4-5 secondary to scoliotic curvature with cont ributing affective disc bulge and facet/ligamentum flavum arthropathy. 3. Multilevel foraminal narrowing predominantly moderate to severe from L2-3 through L5-S1 secondary to facet arthropathy as well as scoliotic curvature. Reviewed by: Юлия De La Torre MD on 06/23/2020 6:32 PM CIPRIANO Approved by: Юлия De La Torre MD on 06/23/2020 6:32 PM AKDT Station ID: [id number]
== END 2020-06-22 14:18 | disposition home or self-care (01) ==
LOC: DI 14:17
PROVIDERS: ATTEND Physical Medicine & Rehabilitation
DX: M48.061 Spinal stenosis, lumbar region without neurogenic claudication (principal); M48.07 Spinal stenosis, lumbosacral region; M47.816 Spondylosis without myelopathy or radiculopathy, lumbar region

== ENCOUNTER 2020-07-12 14:46 | Outpatient (CLI) | payer MEDICARE, OTHER ==
--- NOTE | 2020-07-12 19:02 | Ultrasound Report ---
PROCEDURE: Retroperitoneal Limited INDICATIONS: CYST OF LT KIDNEY TECHNIQUE: Real-time scanning was performed of the retroperitoneal organs, with image documentation. COMPARISON: CT abdomen pelvis 05/01/2020 FINDINGS: Kidneys: Left kidney measures 9.6 cm long; left renal cortical thickness is 1.2 cm. No solid masses, hydronephrosis, or nephrolithiasis. There is a focus of decreased echogenicity within the midpole o f the left kidney measuring 3.4 x 3.0 x 2.5 cm. This corresponds to area of decreased echogenicity wi thin the kidney seen on CT exam of 05/01/2020. IMPRESSION: Left renal cyst. No obstruction. Reviewed by: Юлия De La Torre MD on 07/12/2020 7:00 PM PDT Approved by: Юлия De La Torre MD on 07/12/2020 7:00 PM PDT Station ID: [id number]
== END 2020-07-12 14:47 | disposition home or self-care (01) ==
LOC: DI 14:46
PROVIDERS: ATTEND Physician Assistant
DX: N28.1 Cyst of kidney, acquired (principal)

== ENCOUNTER 2020-07-16 16:11 | Outpatient (CLI) | payer MEDICARE, OTHER | END 2020-07-16 16:12 | disposition home or self-care (01) | LOC: LAB 16:11 | PROVIDERS: ATTEND Internal Medicine Rheumatology | DX: M31.6 Other giant cell arteritis (principal); R51.9 Headache, unspecified | CPT/HCPCS: 36415; 85651; 86140 ==

== ENCOUNTER 2020-07-29 15:12 | Outpatient (CLI) | payer MEDICARE, OTHER | END 2020-07-29 15:13 | disposition home or self-care (01) | LOC: LAB 15:12 | PROVIDERS: ATTEND Internal Medicine | DX: E55.9 Vitamin D deficiency, unspecified (principal) | CPT/HCPCS: 82306 ==

== ENCOUNTER 2021-02-12 11:55 | Outpatient (CLI) | payer MEDICARE, OTHER ==
[2021-02-12 12:21] LABS: BASOPHILS # (AUTO) 0.1 10^3/uL (0.0-0.1); BASOPHILS % (AUTO) 0.7 %; EOSINOPHILS # (AUTO) 0.1 10^3/uL (0.0-0.7); EOSINOPHILS % (AUTO) 0.5 %; HCT - HEMATOCRIT 40.8 % (37.0-47.0); HGB - HEMOGLOBIN 12.6 g/dL (12.0-16.0); LYMPHOCYTES # (AUTO) 1.1 10^3/uL (1.5-3.5); LYMPHOCYTES % (AUTO) 10.3 %; MEAN CORPUSCULAR HEMOGLOBIN 25.5 pg (27.0-31.0); MEAN CORPUSCULAR HGB CONC 30.9 g/dL (32.0-36.0); MEAN CORPUSCULAR VOLUME 82.6 fL (81.0-99.0); MEAN PLATELET VOLUME 8.4 fL (7.9-10.8); MONOCYTES # (AUTO) 0.4 10^3/uL (0.0-1.0); NEUTROPHILS # (AUTO) 9.1 10^3/uL (1.5-6.6); PLT - PLATELET COUNT 263 10^3/uL (130-450); RED BLOOD COUNT 4.94 10^6/uL (4.20-5.40); RED CELL DISTRIBUTION WIDTH 16.5 % (12.0-15.0); WHITE BLOOD COUNT 10.8 x10^3/uL (4.8-10.8)
[2021-02-12 12:34] LABS: ALBUMIN/GLOBULIN RATIO 1.7 (1.0-2.2); ALKALINE PHOSPHATASE 53 IU/L (42-121); ALT ALANINE AMINOTRANSFERASE 20 IU/L (10-60); AST ASPARTATE AMINOTRANSFERASE 23 IU/L (10-42); BILIRUBIN,TOTAL 0.7 mg/dL (0.2-1.0); BUN - BLOOD UREA NITROGEN 28 mg/dL (6-20); CALCIUM 8.7 mg/dL (8.5-10.3); CARBON DIOXIDE - CO2 24 mmol/L (21-32); CHLORIDE 102 mmol/L (101-111); CREATININE 1.1 mg/dL (0.4-1.0); GFR - MDRD 48 (>89); GLUCOSE 87 mg/dL (70-100); POTASSIUM 4.2 mmol/L (3.5-5.0); SODIUM 136 mmol/L (135-145); TOTAL PROTEIN 6.3 g/dL (6.7-8.2)
[2021-02-12 12:42] LABS: CRP - C-REACTIVE PROTEIN < 1.0 mg/dL (0-1.0)
== END 2021-02-12 11:56 | disposition home or self-care (01) ==
LOC: LAB 11:55
PROVIDERS: ATTEND Internal Medicine Rheumatology
DX: M35.3 Polymyalgia rheumatica (principal); M81.0 Age-related osteoporosis without current pathological fracture
CPT/HCPCS: 36415; 80053; 85025; 85651; 86140

== ENCOUNTER 2021-04-11 12:14 | Outpatient (CLI) | payer MEDICARE, OTHER | END 2021-04-11 23:59 | disposition home or self-care (01) | LOC: LAB.N 12:14 | PROVIDERS: ATTEND Physician Assistant Medical | DX: R39.9 Unspecified symptoms and signs involving the genitourinary system (principal) | CPT/HCPCS: 87086; 87181 ==

== ENCOUNTER 2021-05-20 14:47 | Outpatient (CLI) | payer MEDICARE, OTHER ==
[2021-05-20 15:22] LABS: ALBUMIN/GLOBULIN RATIO 1.6 (1.0-2.2); ALKALINE PHOSPHATASE 44 IU/L (42-121); ALT ALANINE AMINOTRANSFERASE 19 IU/L (10-60); AST ASPARTATE AMINOTRANSFERASE 22 IU/L (10-42); BASOPHILS # (AUTO) 0.1 10^3/uL (0.0-0.1); BASOPHILS % (AUTO) 0.9 %; BILIRUBIN,TOTAL 0.4 mg/dL (0.2-1.0); BUN - BLOOD UREA NITROGEN 22 mg/dL (6-20); CARBON DIOXIDE - CO2 25 mmol/L (21-32); CHLORIDE 104 mmol/L (101-111); EOSINOPHILS % (AUTO) 0.3 %; GFR - MDRD 53 (>89); GLUCOSE 97 mg/dL (70-100); HCT - HEMATOCRIT 42.8 % (37.0-47.0); HGB - HEMOGLOBIN 13.4 g/dL (12.0-16.0); LYMPHOCYTES # (AUTO) 1.1 10^3/uL (1.5-3.5); LYMPHOCYTES % (AUTO) 11.2 %; MEAN CORPUSCULAR HGB CONC 31.3 g/dL (32.0-36.0); MEAN CORPUSCULAR VOLUME 86.1 fL (81.0-99.0); MEAN PLATELET VOLUME 8.8 fL (7.9-10.8); MONOCYTES # (AUTO) 0.3 10^3/uL (0.0-1.0); MONOCYTES % (AUTO) 3.5 %; NEUTROPHILS # (AUTO) 7.8 10^3/uL (1.5-6.6); NEUTROPHILS % (AUTO) 83.8 %; PLT - PLATELET COUNT 259 10^3/uL (130-450); POTASSIUM 4.4 mmol/L (3.5-5.0); RED BLOOD COUNT 4.97 10^6/uL (4.20-5.40); RED CELL DISTRIBUTION WIDTH 15.7 % (12.0-15.0); SODIUM 138 mmol/L (135-145); TOTAL PROTEIN 6.5 g/dL (6.7-8.2); WHITE BLOOD COUNT 9.3 x10^3/uL (4.8-10.8)
[2021-05-20 15:24] LABS: CRP - C-REACTIVE PROTEIN < 1.0 mg/dL (0-1.0)
== END 2021-05-20 14:48 | disposition home or self-care (01) ==
LOC: LAB 14:47
PROVIDERS: ATTEND Internal Medicine Rheumatology
DX: M35.3 Polymyalgia rheumatica (principal)
CPT/HCPCS: 36415; 80053; 85025; 85651; 86140

== ENCOUNTER 2021-08-19 14:10 | Outpatient (CLI) | payer MEDICARE, OTHER ==
[2021-08-19 14:47] LABS: BASOPHILS # (AUTO) 0.1 10^3/uL (0.0-0.1); BASOPHILS % (AUTO) 0.9 %; EOSINOPHILS # (AUTO) 0.1 10^3/uL (0.0-0.7); EOSINOPHILS % (AUTO) 1.4 %; HCT - HEMATOCRIT 41.9 % (37.0-47.0); LYMPHOCYTES # (AUTO) 1.4 10^3/uL (1.5-3.5); LYMPHOCYTES % (AUTO) 14.8 %; MEAN CORPUSCULAR HEMOGLOBIN 27.1 pg (27.0-31.0); MEAN CORPUSCULAR VOLUME 87.3 fL (81.0-99.0); MEAN PLATELET VOLUME 8.9 fL (7.9-10.8); MONOCYTES # (AUTO) 0.6 10^3/uL (0.0-1.0); MONOCYTES % (AUTO) 6.3 %; NEUTROPHILS # (AUTO) 7.2 10^3/uL (1.5-6.6); NEUTROPHILS % (AUTO) 76.3 %; PLT - PLATELET COUNT 228 10^3/uL (130-450); RED CELL DISTRIBUTION WIDTH 15.3 % (12.0-15.0); WHITE BLOOD COUNT 9.4 x10^3/uL (4.8-10.8)
[2021-08-19 15:22] LABS: ALBUMIN 3.9 g/dL (3.2-5.5); ALBUMIN/GLOBULIN RATIO 1.4 (1.0-2.2); BILIRUBIN,TOTAL 0.6 mg/dL (0.2-1.0); CALCIUM 8.8 mg/dL (8.5-10.3); CREATININE 1.1 mg/dL (0.4-1.0); POTASSIUM 4.2 mmol/L (3.5-5.0); TOTAL PROTEIN 6.6 g/dL (6.7-8.2)
== END 2021-08-19 14:11 | disposition home or self-care (01) ==
LOC: LAB 14:10
PROVIDERS: ATTEND Internal Medicine Rheumatology
DX: M81.0 Age-related osteoporosis without current pathological fracture (principal); M35.3 Polymyalgia rheumatica; M31.6 Other giant cell arteritis; Z79.52 Long term (current) use of systemic steroids
CPT/HCPCS: 36415; 80053; 82306; 85025; 85651; 86140

== ENCOUNTER 2021-11-10 13:45 | Outpatient (CLI) | payer MEDICARE, OTHER | END 2021-11-10 13:46 | disposition home or self-care (01) | LOC: LAB 13:45 | PROVIDERS: ATTEND Internal Medicine Rheumatology | DX: M35.3 Polymyalgia rheumatica (principal) | CPT/HCPCS: 36415; 85651; 86140 ==

== ENCOUNTER 2022-03-18 15:16 | Outpatient (CLI) | payer MEDICARE, OTHER ==
[2022-03-18 15:40] LABS: ALBUMIN 3.6 g/dL (3.2-5.5); ALBUMIN/GLOBULIN RATIO 1.3 (1.0-2.2); BILIRUBIN,TOTAL 0.8 mg/dL (0.2-1.0); CALCIUM 9.1 mg/dL (8.5-10.3); CREATININE 1.1 mg/dL (0.4-1.0); TOTAL PROTEIN 6.3 g/dL (6.7-8.2)
== END 2022-03-18 15:17 | disposition home or self-care (01) ==
LOC: LAB 15:16
PROVIDERS: ATTEND Internal Medicine Rheumatology
DX: M81.0 Age-related osteoporosis without current pathological fracture (principal)
CPT/HCPCS: 36415; 80053

== ENCOUNTER 2022-05-09 15:04 | Outpatient (CLI) | payer MEDICARE, OTHER ==
[2022-05-09 15:16] LABS: BASOPHILS # (AUTO) 0.1 10^3/uL (0.0-0.1); BASOPHILS % (AUTO) 0.8 %; EOSINOPHILS # (AUTO) 0.1 10^3/uL (0.0-0.7); EOSINOPHILS % (AUTO) 1.1 %; HCT - HEMATOCRIT 44.3 % (37.0-47.0); HGB - HEMOGLOBIN 14.1 g/dL (12.0-16.0); LYMPHOCYTES # (AUTO) 1.2 10^3/uL (1.5-3.5); LYMPHOCYTES % (AUTO) 13.6 %; MEAN CORPUSCULAR HEMOGLOBIN 27.6 pg (27.0-31.0); MEAN CORPUSCULAR HGB CONC 31.8 g/dL (32.0-36.0); MEAN CORPUSCULAR VOLUME 86.9 fL (81.0-99.0); MEAN PLATELET VOLUME 8.4 fL (7.9-10.8); MONOCYTES # (AUTO) 0.5 10^3/uL (0.0-1.0); MONOCYTES % (AUTO) 5.8 %; NEUTROPHILS % (AUTO) 78.4 %; PLT - PLATELET COUNT 216 10^3/uL (130-450); RED CELL DISTRIBUTION WIDTH 15.4 % (12.0-15.0); WHITE BLOOD COUNT 8.9 x10^3/uL (4.8-10.8)
[2022-05-09 15:34] LABS: ALBUMIN/GLOBULIN RATIO 1.7 (1.0-2.2); BILIRUBIN,TOTAL 0.6 mg/dL (0.2-1.0); CALCIUM 8.8 mg/dL (8.5-10.3); CREATININE 1.1 mg/dL (0.4-1.0); CRP - C-REACTIVE PROTEIN 1.9 mg/dL (0-1.0); TOTAL PROTEIN 6.4 g/dL (6.7-8.2)
== END 2022-05-09 15:05 | disposition home or self-care (01) ==
LOC: LAB 15:04
PROVIDERS: ATTEND Internal Medicine Rheumatology
DX: M35.3 Polymyalgia rheumatica (principal)
CPT/HCPCS: 36415; 80053; 85025; 85651; 86140

== ENCOUNTER 2022-05-12 13:48 | Outpatient (CLI) | payer MEDICARE, OTHER ==
--- NOTE | 2022-05-13 10:42 | Mammography Report ---
BILATERAL DIGITAL SCREENING MAMMOGRAM 3D/2D: 05/12/2022 CLINICAL: Routine screening. Comparison is made to exams dated: 06/19/2020 mammogram, 10/01/2018 mammogram, and 07/07/2015 mammogram - [facility]. There are scattered areas of fibroglandular density in both breasts (category b / 25%-50% glandular t issue). There are benign vascular calcifications in both breasts. No significant masses, calcifications, or other findings are seen in either breast. There has been no significant interval change. IMPRESSION: BENIGN There is no mammographic evidence of malignancy. A 1 year screening mammogram is recommended. Based on the Tyrer Cuzick model (a risk assessment model) the patients lifetime risk is 1.1% and her 10 year risk is 0.0%. According to the ACR, ACS, and NCCN guidelines, an annual breast MRI exam gricelda g with mammogram is recommended if the patients lifetime risk is 20% or greater. This exam was interpreted at Station ID: [id number]. NOTE: For mammograms, a report in lay terms will be sent to the patient. Approximately 15% of breast malignancies will not be visualized mammographically. In the management of a palpable breast mass, a negative mammogram must not discourage biopsy of a clinically suspicious lesion. Electronically Signed By: Henry awan/jhon:05/12/2022 15:03:19 letter sent: No_Letter ACR BI-RADS Category 2: Benign Finding(s) 3342F PARENCHYMAL PATTERN: (A) - The breast(s) demonstrate(s) scattered fibroglandular densities. BI-RADS CATEGORY: (2) - 2 Mammogram [id number] 1 year screening LATERALITY: (B)
== END 2022-05-12 13:49 | disposition home or self-care (01) ==
LOC: DI 13:48
DX: Z12.31 Encounter for screening mammogram for malignant neoplasm of breast (principal)

== ENCOUNTER 2022-07-21 13:06 | Emergency (ER) | payer MEDICARE, OTHER ==
[2022-07-21] MEDS ORDERED: HYDROmorphone 1 MG/ML CARPUJECT IM STA (13:34)
[2022-07-21] MEDS ORDERED: DEXAMETHASONE 10 MG/ML VIAL IM STA (13:34)
--- NOTE | 2022-07-21 13:51 | ED Physician Documentation ---
History of Present Illness - Stated complaint Stated Complaint: BACK PX - Chief complaint Chief Complaint: Back Pain - History obtained from History obtained from: Patient, Family - Additonal information Additional information: The patient comes to the emergency department chief complaint of low back pain for the last 6 days. She states that she has severe scoliosis and has a lot of back problems, but she is not really entirely sure what triggered this episode. She states that at that time, she and her daughter had attempted to lift a garbage can full of yard clippings, but as soon as she started to lift, the patient realized it was too heavy and they set it down. The patient did not feel like she injured herself at that time and the pain occurred gradually over the next 24 hours. The patient states that she has tried all of her home medications except her narcotics, including gabapentin, her prednisone which she doubled from her baseline of 6 mg to 12 mg, ice, heat, and IcyHot. The patient states that she has hydrocodone and tramadol at home, but she did not take those because she wanted to make sure her symptoms were clear when she came in here. She denies any numbness or tingling in her lower extremities. She does have some pain going through her right buttock and shooting down into her right leg. She denies any loss of bowel or bladder control that is new. The patient also has a history of polymyalgia rheumatica and giant cell arteritis which has affected her temporal arteries intermittently in the past. 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 No other complaints at this time. PD PAST MEDICAL HISTORY - Past Medical History Cardiovascular: Other Respiratory: None Neuro: TIA, Migraines Endocrine/Autoimmune: None GI: None TRAY CHECKER: None : None HEENT: Glaucoma Psych: None Musculoskeletal: Rheumatoid arthritis, Osteoporosis, Chronic back pain, Other Derm: None - Past Surgical History Past Surgical History: Yes Ortho: Hip replacement /TRAY CHECKER: Hysterectomy Derm: Skin cancer surgery - Present Medications Home Medications: Ambulatory Orders Medication Instructions Recorded Confirmed predniSONE [Prednisone] 6 mg PO DAILY 08/01/16 07/21/22 Denosumab [Prolia] 60 mg SUBQ ONCE 08/02/16 07/21/22 Multivitamin [Multivitamins] 1 cap PO DAILY 08/02/16 07/21/22 [place]-3/Dha/Epa/Fish Oil [Fish Oil 1,000 mg PO DAILY 08/02/16 07/21/22 1,000 mg Softgel] Turmeric/Turmeric Root Extract 1 cap PO DAILY 12/26/19 07/21/22 [Turmeric 500 mg Capsule] Acetaminophen [Tylenol Arthritis] 650 mg PO HS PRN 07/21/22 07/21/22 Cyclobenzaprine [Flexeril] 10 mg PO DAILY 07/21/22 07/21/22 Cyclobenzaprine [Flexeril] 10 mg PO TID PRN #20 tablet 07/21/22 Gabapentin [Neurontin] 100 mg PO DAILY PRN 07/21/22 07/21/22 Glucos Sul 2Kcl/MSM/Chond/C/Mn 1 each PO DAILY 07/21/22 07/21/22 [Glucosamine Chondroitin Cap] HYDROcod/ACETAM 5/325 [[place] 5/325] 1 - 2 tablet PO Q6H PRN #14 tablet 07/21/22 diphenhydrAMINE HCL [Sleep Aid] 25 mg PO HS 07/21/22 07/21/22 predniSONE [Deltasone] 10 mg PO [id number] #42 tab 07/21/22 traMADol [Ultram] 50 mg PO DAILY PRN 07/21/22 07/21/22 - Allergies Allergies/Adverse Reactions: Allergies Allergy/AdvReac Type Severity Reaction Status Date / Time Penicillins Allergy Hives Verified 07/21/22 13:25 - Social History Does the pt smoke?: No Smoking Status: Never smoker Does the pt drink ETOH?: Yes Does the pt have substance abuse?: No - Immunizations Immunizations are current?: No Immunizations: TDAP >10years/unknown - POLST Patient has POLST: No PD ED PE NORMAL - Vitals Vital signs reviewed: Yes - General General: Alert and oriented X 3, No acute distress, Well developed/nourished - HEENT HEENT: Atraumatic, PERRL, EOMI, Moist mucous membranes - Neck Neck: Supple, no meningeal sign - Cardiac Cardiac: RRR, No murmur, Strong equal pulses - Respiratory Respiratory: No respiratory distress, Clear bilaterally - Abdomen Abdomen: Soft, Non tender, Non distended - Back Back: Other (The patient has a misshapen torso, most noticeable in the back, with a sinuous spinal course. 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, No motor deficit, No sensory deficit, Normal speech - Psych Psych: Normal mood, Normal affect Results - Vitals Vitals: Oxygen O2 Source Room air - Labs Labs: Laboratory Tests 07/21/22 07/21/22 07/21/22 14:24 14:24 14:24 WBC 8.7 RBC 4.97 Hgb 13.9 Hct 43.8 MCV 88.1 MCH 28.0 MCHC 31.7 L RDW 14.6 Plt Count 216 MPV 8.4 Neut # (Auto) 7.3 H Lymph # (Auto) 0.9 L [place] # (Auto) 0.4 Eos # (Auto) 0.0 Baso # (Auto) 0.1 Absolute Nucleated RBC 0.00 Nucleated RBC % 0.0 ESR 6 Sodium 137 Potassium 4.4 Chloride 101 Carbon Dioxide 24 Anion Gap 12.0 BUN 28 H Creatinine 1.0 Estimated GFR (MDRD) 53 L Glucose 99 Calcium 8.6 Total Bilirubin 0.6 AST 25 ALT 19 Alkaline Phosphatase 51 C-Reactive Protein < 1.0 Total Protein 6.2 L Albumin 3.5 Globulin 2.7 Albumin/Globulin Ratio 1.3 Lipase 60 H - Rads (name of study) Lumbar spine CT Relevant Findings:: Final report received, See rad report (Severe levocurvature; foraminal stenosis; L2 transverse process fracture likely chronic; no compression fracture.) PD Medical Decision Making - ED course Complexity details: reviewed results, re-evaluated patient, considered differential, d/w patient ED course: The patient was treated symptomatically in the emergency department with Decadron and Dilaudid. Her daughter refused NSAIDs for her, stating that the prednisone has already made the patient fragile and that she is "not supposed to" take NSAIDs. Patient was sent for CT scan of the lumbar spine. CT showed chronic findings but nothing acute. The patient is feeling better after symptomatic management and I felt she was stable for discharge home. We have discussed the usual indications for return. Departure - Departure Disposition: 01 Home, Self Care Clinical Impression: Lumbar strain Qualifiers: Encounter type: initial encounter Qualified Code(s): S39.012A - Strain of muscle, fascia and tendon of lower back, initial encounter Condition: Stable Instructions: ED Sprain Strain Lumbar Prescriptions: predniSONE [Deltasone] 10 mg PO [id number] #42 tab Cyclobenzaprine [Flexeril] 10 mg PO TID PRN #20 tablet PRN Reason: Spasms HYDROcod/ACETAM 5/325 [[place] 5/325] 1 - 2 tablet PO Q6H PRN #14 tablet PRN Reason: Pain Comments: Your CT scan shows a fracture of one of your lateral processes of your L2 vertebrae, which is of unknown age but probably old according to the radi ologist. No other acute findings or serious findings were noted. In comparison with your MRI from 2 years ago, there is mostly stable appearance. Most likely, you have strained your back from his normal activities of positioning especially with the gardening you been doing. With your underlying scoliosis and stenosis, it is not surprising that you would have a flareup from what seems like regular activities. You have been treated with some medication for pain in the emergency department today, as well as an extra dose of steroid. A prescription for medication for pain, muscle relaxation, and a steroid taper has been electronically transmitted to the [facility] pharmacy in [place]. Please follow-up as planned with your physical therapist tomorrow and with your pain specialist at the scheduled time. Please also schedule an appoint with your primary doctor, should you have further concerns. Discharge Date/Time: 07/21/22 16:52
[2022-07-21 14:35] LABS: BASOPHILS # (AUTO) 0.1 10^3/uL (0.0-0.1); BASOPHILS % (AUTO) 0.7 %; EOSINOPHILS % (AUTO) 0.3 %; HCT - HEMATOCRIT 43.8 % (37.0-47.0); HGB - HEMOGLOBIN 13.9 g/dL (12.0-16.0); LYMPHOCYTES # (AUTO) 0.9 10^3/uL (1.5-3.5); LYMPHOCYTES % (AUTO) 10.2 %; MEAN CORPUSCULAR HGB CONC 31.7 g/dL (32.0-36.0); MEAN CORPUSCULAR VOLUME 88.1 fL (81.0-99.0); MEAN PLATELET VOLUME 8.4 fL (7.9-10.8); MONOCYTES # (AUTO) 0.4 10^3/uL (0.0-1.0); NEUTROPHILS # (AUTO) 7.3 10^3/uL (1.5-6.6); NEUTROPHILS % (AUTO) 84.5 %; PLT - PLATELET COUNT 216 10^3/uL (130-450); RED BLOOD COUNT 4.97 10^6/uL (4.20-5.40); RED CELL DISTRIBUTION WIDTH 14.6 % (12.0-15.0); WHITE BLOOD COUNT 8.7 x10^3/uL (4.8-10.8)
[2022-07-21 14:50] LABS: ALBUMIN 3.5 g/dL (3.2-5.5); ALBUMIN/GLOBULIN RATIO 1.3 (1.0-2.2); ALKALINE PHOSPHATASE 51 IU/L (42-121); ALT ALANINE AMINOTRANSFERASE 19 IU/L (10-60); AST ASPARTATE AMINOTRANSFERASE 25 IU/L (10-42); BILIRUBIN,TOTAL 0.6 mg/dL (0.2-1.0); BUN - BLOOD UREA NITROGEN 28 mg/dL (6-20); CALCIUM 8.6 mg/dL (8.5-10.3); CARBON DIOXIDE - CO2 24 mmol/L (21-32); CHLORIDE 101 mmol/L (101-111); GFR - MDRD 53 (>89); GLUCOSE 99 mg/dL (70-100); LIPASE 60 U/L (22-51); POTASSIUM 4.4 mmol/L (3.5-5.0); SODIUM 137 mmol/L (135-145); TOTAL PROTEIN 6.2 g/dL (6.7-8.2)
[2022-07-21 14:57] LABS: CRP - C-REACTIVE PROTEIN < 1.0 mg/dL (0-1.0)
--- NOTE | 2022-07-21 15:55 | CT Report ---
PROCEDURE: LUMBAR SPINE WO INDICATIONS: low back pain, worsening TECHNIQUE: Noncontrast 3 mm thick sections acquired from the T12 level to the sacrum. Sagittal and coronal refo rmats were constructed. For radiation dose reduction, the following was used: automated exposure co ntrol, adjustment of mA and/or kV according to patient size. COMPARISON: 06/22/2020. FINDINGS: Image quality: Excellent. Bones: Severe levo scoliotic curvature centered at L3-L4. Rightward listhesis of L2 on L3 measuring 1 .2 cm. Leftward listhesis of L4 on L5 measures 1.5 cm. No acute vertebral body compression fractures. Right transverse process fracture of L2 is likely chronic. It is relatively close to a chronic poste rior right rib fracture. No suspicious lytic or blastic bony lesions. Central spinal caliber is of n ormal overall caliber. No pars defects. T12-L1: No significant canal stenosis or foraminal stenosis noted. L1-L2: Right facet hypertrophy. No significant canal stenosis. No significant foraminal stenosis. L2-L3: Medially directed facet joint hypertrophy on the right significantly narrows the right side of the canal. L3-L4: Disc bulge. Mild canal stenosis. Facet hypertrophy. Moderate right foraminal narrowing. L4-L5: Moderate central canal stenosis. Facet hypertrophy. Bilateral lateral recess stenosis. L5-S1: No canal stenosis. Mild left foraminal stenosis. Soft tissues: No retroperitoneal masses or hematomas. Visualized aorta is normal in caliber. IMPRESSION: 1. No acute compression fractures. 2. A right transverse process fracture at L2 is likely chronic. 3. Severe levocurvature. 4. Multilevel canal stenosis and foraminal stenosis as described above, previously noted on prior MRI . Reviewed by: Tyler Chi MD on 07/21/2022 3:54 PM PDT Approved by: Tyler Chi MD on 07/21/2022 3:54 PM PDT Station ID: [id number]
[2022-07-21 16:54] VITALS: BP 148/73
== END 2022-07-21 16:52 | disposition home or self-care (01) ==
LOC: ED 13:06
DX: S39.012A Strain of muscle, fascia and tendon of lower back, initial encounter (principal); X50.0XXA Overexertion from strenuous movement or load, initial encounter; Z79.899 Other long term (current) drug therapy
CPT/HCPCS: 36415; 72131; 80053; 83690; 85025; 85651; 86140; 96372; 99283; 99284; J1170

== ENCOUNTER 2022-12-01 14:12 | Outpatient (CLI) | payer MEDICARE, OTHER ==
[2022-12-01 14:29] LABS: BASOPHILS # (AUTO) 0.1 10^3/uL (0.0-0.1); BASOPHILS % (AUTO) 0.7 %; EOSINOPHILS # (AUTO) 0.1 10^3/uL (0.0-0.7); EOSINOPHILS % (AUTO) 1.8 %; HCT - HEMATOCRIT 41.1 % (37.0-47.0); LYMPHOCYTES % (AUTO) 13.4 %; MEAN CORPUSCULAR HEMOGLOBIN 28.7 pg (27.0-31.0); MEAN CORPUSCULAR HGB CONC 31.6 g/dL (32.0-36.0); MEAN CORPUSCULAR VOLUME 90.7 fL (81.0-99.0); MEAN PLATELET VOLUME 8.5 fL (7.9-10.8); MONOCYTES # (AUTO) 0.4 10^3/uL (0.0-1.0); MONOCYTES % (AUTO) 5.4 %; NEUTROPHILS % (AUTO) 78.3 %; PLT - PLATELET COUNT 176 10^3/uL (130-450); RED BLOOD COUNT 4.53 10^6/uL (4.20-5.40); RED CELL DISTRIBUTION WIDTH 14.6 % (12.0-15.0); WHITE BLOOD COUNT 7.6 x10^3/uL (4.8-10.8)
[2022-12-01 15:00] LABS: ALBUMIN 3.9 g/dL (3.2-5.5); ALBUMIN/GLOBULIN RATIO 1.9 (1.0-2.2); BILIRUBIN,TOTAL 0.4 mg/dL (0.2-1.0); CALCIUM 9.2 mg/dL (8.5-10.3); CREATININE 0.9 mg/dL (0.6-1.3); CRP - C-REACTIVE PROTEIN 0.9 mg/dL (<0.5); POTASSIUM 4.2 mmol/L (3.5-4.5)
== END 2022-12-01 14:13 | disposition home or self-care (01) ==
LOC: LAB 14:12
PROVIDERS: ATTEND Internal Medicine Rheumatology
DX: M35.3 Polymyalgia rheumatica (principal)
CPT/HCPCS: 36415; 80053; 85025; 85651; 86140

== ENCOUNTER 2023-03-22 12:01 | Outpatient (CLI) | payer MEDICARE, OTHER ==
[2023-03-22 12:23] LABS: BASOPHILS # (AUTO) 0.1 10^3/uL (0.0-0.1); BASOPHILS % (AUTO) 0.7 %; EOSINOPHILS # (AUTO) 0.2 10^3/uL (0.0-0.7); EOSINOPHILS % (AUTO) 2.5 %; HCT - HEMATOCRIT 42.9 % (37.0-47.0); HGB - HEMOGLOBIN 13.1 g/dL (12.0-16.0); LYMPHOCYTES # (AUTO) 1.4 10^3/uL (1.5-3.5); LYMPHOCYTES % (AUTO) 14.6 %; MEAN CORPUSCULAR HEMOGLOBIN 27.1 pg (27.0-31.0); MEAN CORPUSCULAR HGB CONC 30.5 g/dL (32.0-36.0); MEAN CORPUSCULAR VOLUME 88.6 fL (81.0-99.0); MEAN PLATELET VOLUME 8.7 fL (7.9-10.8); MONOCYTES # (AUTO) 0.6 10^3/uL (0.0-1.0); MONOCYTES % (AUTO) 6.6 %; NEUTROPHILS # (AUTO) 7.2 10^3/uL (1.5-6.6); NEUTROPHILS % (AUTO) 75.3 %; PLT - PLATELET COUNT 204 10^3/uL (130-450); RED BLOOD COUNT 4.84 10^6/uL (4.20-5.40); RED CELL DISTRIBUTION WIDTH 14.2 % (12.0-15.0); WHITE BLOOD COUNT 9.6 x10^3/uL (4.8-10.8)
[2023-03-22 12:39] LABS: ALBUMIN 3.9 g/dL (3.2-5.5); ALBUMIN/GLOBULIN RATIO 1.6 (1.0-2.2); BILIRUBIN,TOTAL 0.5 mg/dL (0.2-1.0); CALCIUM 8.9 mg/dL (8.5-10.3); CRP - C-REACTIVE PROTEIN 0.9 mg/dL (<0.5); POTASSIUM 3.7 mmol/L (3.5-4.5); TOTAL PROTEIN 6.3 g/dL (6.4-8.9)
== END 2023-03-22 12:02 | disposition home or self-care (01) ==
LOC: LAB 12:01
PROVIDERS: ATTEND Internal Medicine Rheumatology
DX: M31.6 Other giant cell arteritis (principal); M35.3 Polymyalgia rheumatica; Z51.81 Encounter for therapeutic drug level monitoring; Z79.899 Other long term (current) drug therapy; Z13.21 Encounter for screening for nutritional disorder
CPT/HCPCS: 36415; 80053; 82306; 85025; 85651; 86140

== ENCOUNTER 2023-05-22 15:08 | Emergency (ER) | payer MEDICARE, OTHER ==
[2023-05-22] MEDS: TRANEXAMIC ACID 1,000 MG/10 ML VIAL NAS STA (15:50)
[2023-05-22] MEDS: OXYMETAZOLINE HCL 100 SPRAYS BOTTLE NAS STA (15:50)
--- NOTE | 2023-05-22 17:06 | ED Physician Documentation ---
PD MEDEIROS HEENT - Stated complaint Stated Complaint: NOSEBLEED - Chief complaint Chief Complaint: Heent - Additional information Additional information: 82-year-old female with no pertinent past medical history not on blood thinners presents emergency department for nosebleed. Patient said this started on suddenly no trauma no recent upper respiratory infection no history of allergies said this started about an hour ago and she has been having a hard time getting her nose to stop bleeding. She is here with her daughter. 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: None : None HEENT: Glaucoma Psych: None Musculoskeletal: Rheumatoid arthritis, Osteoporosis, Chronic back pain, Other Derm: None - Past Surgical History Past Surgical History: Yes Ortho: Hip replacement /ENTERPRISE APPLICATION ARCHITECT: Hysterectomy Derm: Skin cancer surgery - Present Medications Home Medications: Ambulatory Orders Medication Instructions Recorded Confirmed predniSONE [Prednisone] 6 mg PO DAILY 08/01/16 07/21/22 Denosumab [Prolia] 60 mg SUBQ ONCE 08/02/16 07/21/22 Multivitamin [Multivitamins] 1 cap PO DAILY 08/02/16 07/21/22 [place]-3/Dha/Epa/Fish Oil [Fish Oil 1,000 mg PO DAILY 08/02/16 07/21/22 1,000 mg Softgel] Turmeric/Turmeric Root Extract 1 cap PO DAILY 12/26/19 07/21/22 [Turmeric 500 mg Capsule] Acetaminophen [Tylenol Arthritis] 650 mg PO HS PRN 07/21/22 07/21/22 Cyclobenzaprine [Flexeril] 10 mg PO DAILY 07/21/22 07/21/22 Cyclobenzaprine [Flexeril] 10 mg PO TID PRN #20 tablet 07/21/22 Gabapentin [Neurontin] 100 mg PO DAILY PRN 07/21/22 07/21/22 Glucos Sul 2Kcl/MSM/Chond/C/Mn 1 each PO DAILY 07/21/22 07/21/22 [Glucosamine Chondroitin Cap] HYDROcod/ACETAM 5/325 [[place] 5/325] 1 - 2 tablet PO Q6H PRN #14 tablet 07/21/22 diphenhydrAMINE HCL [Sleep Aid] 25 mg PO HS 07/21/22 07/21/22 predniSONE [Deltasone] 10 mg PO [id number] #42 tab 07/21/22 traMADol [Ultram] 50 mg PO DAILY PRN 07/21/22 07/21/22 - Allergies Allergies/Adverse Reactions: Allergies Allergy/AdvReac Type Severity Reaction Status Date / Time Penicillins Allergy Hives Verified 05/22/23 15:22 - Social History Does the pt smoke?: No Smoking Status: Never smoker Does the pt drink ETOH?: Yes Does the pt have substance abuse?: No - Immunizations Immunizations are current?: No Immunizations: TDAP >10years/unknown - POLST Patient has POLST: No PD ED PE NORMAL - Vitals Vital signs reviewed: Yes - General General: Alert and oriented X 3, No acute distress, Well developed/nourished - HEENT HEENT: PERRL, Moist mucous membranes, Pharynx benign, Other (Left nares epistaxis) Results - Vitals Vitals: Vital Signs - 24 hr 05/22/23 05/22/23 15:13 17:16 Temperature 36.8 C 36.5 C Heart Rate 90 86 Respiratory 16 13 Rate Blood Pressure 160/90 H 149/74 H O2 Saturation 98 100 Oxygen O2 Source Room air Procedures - Epistaxis - Minor Site: Left, Anterior Preparation: Clots removed, Afrin, Other (Tranexamic acid) Treatment: Packing inserted Other: Observed - no bleeding, Pt tolerated well, O2 sat WNL PD Medical Decision Making - ED course ED course: 82-year-old female presents to the emergency department for left naris epistaxis. Bleeding was controlled after Merisel packing was applied to the left naris with Afrin and tranexamic acid with nose clamp for 30 minutes. Nose clamp and packing was removed she was observed for an additional 20 to 30 minutes and had no repeat bleeding was visualized. Patient said that this is the first nosebleeds that she is ever had she was told how to manage this at home with Afrin and nose clamp told if this continues to happen present back to the emergency department and may need ENT referral but at this point in time no further interventions needed. Departure - Departure Disposition: Home, Self Care Clinical Impression: Epistaxis Condition: Good Instructions: ED Nosebleed Comments: Thank you for trusting us with your care we were able to stop your nosebleed with Tranexamic acid and Afrin. In the future going home in the next 24 hours or so I would strongly suggest to not blow your noseIn the next 24 hours or so. Keep your left nostril moist with things like Vaseline. If it happens again blow your nose get all the large clots out and thenApply 1 to 2 puffs of Afrin in each nostril and then your clamp for 30 minutes.If you have done this and you are still having nosebleed please come back to the emergency department for further evaluation. Forms: PCP List Discharge Date/Time: 05/22/23 17:16
[2023-05-22 17:23] VITALS: BP 149/74; O2SAT 100
== END 2023-05-22 17:16 | disposition home or self-care (01) ==
LOC: ED 15:08
DX: R04.0 Epistaxis (principal); Z86.73 Personal history of transient ischemic attack (TIA), and cerebral infarction without residual deficits; M06.9 Rheumatoid arthritis, unspecified; M81.0 Age-related osteoporosis without current pathological fracture; Z79.899 Other long term (current) drug therapy
CPT/HCPCS: 30901; 99282; 99283; A9270

== ENCOUNTER 2023-06-13 11:26 | Outpatient (CLI) | payer MEDICARE, OTHER ==
[2023-06-13 11:40] LABS: BASOPHILS # (AUTO) 0.1 10^3/uL (0.0-0.1); BASOPHILS % (AUTO) 1.2 %; EOSINOPHILS # (AUTO) 0.2 10^3/uL (0.0-0.7); EOSINOPHILS % (AUTO) 3.2 %; HCT - HEMATOCRIT 42.8 % (37.0-47.0); HGB - HEMOGLOBIN 13.5 g/dL (12.0-16.0); LYMPHOCYTES # (AUTO) 1.9 10^3/uL (1.5-3.5); LYMPHOCYTES % (AUTO) 29.6 %; MEAN CORPUSCULAR HEMOGLOBIN 27.8 pg (27.0-31.0); MEAN CORPUSCULAR HGB CONC 31.5 g/dL (32.0-36.0); MEAN CORPUSCULAR VOLUME 88.2 fL (81.0-99.0); MEAN PLATELET VOLUME 8.6 fL (7.9-10.8); MONOCYTES # (AUTO) 0.7 10^3/uL (0.0-1.0); MONOCYTES % (AUTO) 10.3 %; NEUTROPHILS # (AUTO) 3.6 10^3/uL (1.5-6.6); NEUTROPHILS % (AUTO) 55.4 %; PLT - PLATELET COUNT 210 10^3/uL (130-450); RED BLOOD COUNT 4.85 10^6/uL (4.20-5.40); RED CELL DISTRIBUTION WIDTH 14.6 % (12.0-15.0); WHITE BLOOD COUNT 6.5 x10^3/uL (4.8-10.8)
[2023-06-13 11:53] LABS: ALBUMIN/GLOBULIN RATIO 1.7 (1.0-2.2); ALKALINE PHOSPHATASE 48 IU/L (42-121); ALT ALANINE AMINOTRANSFERASE 13 IU/L (10-60); AST ASPARTATE AMINOTRANSFERASE 20 IU/L (10-42); BILIRUBIN,TOTAL 0.6 mg/dL (0.2-1.0); BUN - BLOOD UREA NITROGEN 21 mg/dL (6-20); CALCIUM 9.1 mg/dL (8.5-10.3); CARBON DIOXIDE - CO2 27 mmol/L (21-32); CHLORIDE 103 mmol/L (101-111); CHOL/HDL RATIO 3.1 (<4.4); CHOLESTEROL 276 mg/dL; CREATININE 1.1 mg/dL (0.6-1.3); CRP - C-REACTIVE PROTEIN 1.4 mg/dL (<0.5); GFR - MDRD 48 (>89); GLUCOSE 72 mg/dL (74-104); HDL CHOLESTEROL 89 mg/dL; LDL CHOLESTEROL,CALCULATED 154 mg/dL; LDL/HDL RATIO 1.7 (<4.4); POTASSIUM 3.8 mmol/L (3.5-4.5); SODIUM 136 mmol/L (135-145); TOTAL PROTEIN 6.4 g/dL (6.4-8.9); TRIGLYCERIDES 163 mg/dL (48-352); VLDL CHOLESTEROL 33 mg/dL
[2023-06-13 12:08] LABS: THYROID STIMULATING HORMONE 7.06 uIU/mL (0.34-5.60)
== END 2023-06-13 11:27 | disposition home or self-care (01) ==
LOC: LAB 11:26
PROVIDERS: ATTEND Family Medicine
DX: Z00.00 Encounter for general adult medical examination without abnormal findings (principal); I73.9 Peripheral vascular disease, unspecified; E78.5 Hyperlipidemia, unspecified; M31.5 Giant cell arteritis with polymyalgia rheumatica; E03.9 Hypothyroidism, unspecified; K51.219 Ulcerative (chronic) proctitis with unspecified complications
CPT/HCPCS: 36415; 80053; 80061; 83721; 84439; 84443; 85025; 85651; 86140

== ENCOUNTER 2023-10-06 14:29 | Outpatient (CLI) | payer MEDICARE, OTHER ==
--- NOTE | 2023-10-09 08:07 | Mammography Report ---
BILATERAL DIGITAL SCREENING MAMMOGRAM 3D/2D WITH LATEROMEDIAL OBLIQUE: 10/06/2023 CLINICAL: Routine screening. Comparison is made to exams dated: 05/12/2022 mammogram, 06/19/2020 mammogram, 10/01/2018 mammogram, and 07/07/2015 mammogram - [facility]. There are scattered areas of fibroglandular density in both breasts (category b / 25%-50% glandular t issue). There are benign vascular calcifications in both breasts. No significant masses, calcifications, or other findings are seen in either breast. There has been no significant interval change. IMPRESSION: BENIGN There is no mammographic evidence of malignancy. A 1 year screening mammogram is recommended. Based on the Tyrer Cuzick model (a risk assessment model) the patient's lifetime risk is 0.4% and her 10 year risk is 0.0%. According to the ACR, ACS, and NCCN guidelines, an annual breast MRI exam gricelda g with mammogram is recommended if the patient's lifetime risk is 20% or greater. This exam was interpreted at Station ID: [id number]. NOTE: For mammograms, a report in lay terms will be sent to the patient. Approximately 15% of breast malignancies will not be visualized mammographically. In the management of a palpable breast mass, a negative mammogram must not discourage biopsy of a clinically suspicious lesion. Electronically Signed By: Néstor braun/jhon:10/09/2023 07:16:28 letter sent: No_Letter ACR BI-RADS Category 2: Benign Finding(s) 3342F PARENCHYMAL PATTERN: (A) - The breast(s) demonstrate(s) scattered fibroglandular densities. BI-RADS CATEGORY: (2) - 2 RECOMMENDATION: (ANNUAL) - Recommend routine annual screening mammography. [id number] 1 year screening LATERALITY: (B)
== END 2023-10-06 14:30 | disposition home or self-care (01) ==
LOC: DI 14:29
DX: Z12.31 Encounter for screening mammogram for malignant neoplasm of breast (principal); R92.323 Mammographic fibroglandular density, bilateral breasts